=== PATIENT | female | born 1955 | race Caucasian/White ===

== ENCOUNTER → 2018-01-09 12:19 | Outpatient (CLI) | payer OTHER, SELFPAY | PROVIDERS: Family Provider Family Medicine Geriatric Medicine; PCP Family Medicine Geriatric Medicine; Visit Provider Family Medicine Geriatric Medicine | DX: R68.83 Chills (without fever) (principal) | CPT/HCPCS: 87633 ==

== ENCOUNTER → 2018-01-19 19:53 | Outpatient (CLI) | payer OTHER, SELFPAY ==
[2018-01-21 13:28] LABS: HPV Reflexed? NOT INDICATED
== END ==
PROVIDERS: Visit Provider Obstetrics & Gynecology
DX: Z12.4 Encounter for screening for malignant neoplasm of cervix (principal)
CPT/HCPCS: 88175; G0145

== ENCOUNTER → 2018-02-23 16:15 | Outpatient (CLI) | payer OTHER, SELFPAY ==
[2018-02-23 17:38] LABS: Absolute Lymphocyte Count 1.64 X10^3/ul (0.83-4.51); Absolute Neutrophil Count 3.7 X10^3/uL (2.0-7.7); Basophil# 0.02 X10^3/uL; Basophil% 0.3 % (0-1); Eosinophil# 0.14 X10^3/uL; Eosinophils% 2.3 % (0-5); Hematocrit 40.4 % (37-47); Hemoglobin 12.5 g/dl (12.0-15.0); Lymphocyte # 1.64 X10^3/ul (4.0); Lymphocyte % 27.4 % (19-41); Mean Corp Hgb Conc 30.9 g/gl (32-36); Mean Corpuscular Hgb 30.3 pg (27.0-32.0); Mean Corpuscular Volume 97.8 fL (81-99); Mean Platelet Vol. 10.2 fl (6.2-12.0); Monocyte# 0.51 X10^3/uL; Monocyte% 8.5 % (0-10); Neutrophil # 3.66 X10^3/uL (2.7-7.7); Neutrophil % 61.3 % (47-70); Platelet Count 196 K/mm3 (150-450); RBC Distribution Width CV 16.1 % (11.6-14.6); RBC Distribution Width SD 58.1 fl (35.1-43.9); Red Blood Count 4.13 M/mm3 (4.2-5.4)
[2018-02-23 17:45] LABS: POSITIVE COUNT NO; POSITIVE DIFFERENTIAL NO; POSITIVE MORPHOLOGY NO
[2018-02-23 17:52] LABS: ALB/GLOB Ratio 1.2 RATIO (0.9-2.4); AST(SGOT) 17 U/L (15-37); Alanine Aminotransfer ALT/SGPT 20 U/L (13-56); Albumin, Serum 3.6 g/dL (3.2-5.0); Alkaline Phosphatase 60 U/L (45-117); Anion Gap 5 (5-15); BUN 20 mg/dL (7-18); BUN/Creat Ratio 21.3 RATIO (10-20); Calcium,Total 8.2 mg/dL (8.5-10.1); Chloride 108 mmol/L (98-107); Creatinine, Serum 0.94 mg/dL (0.55-1.02); EST Glomerular Filtration Rate 64 mL/min (>60); Est Glom Filt Rate - Afr Amer 77 mL/min (>60); Globulin 3.1 g/dL (2.2-4.2); Glucose 72 mg/dL (74-106); Potassium 4.1 mmol/L (3.5-5.1); Protein, Total 6.7 g/dL (6.4-8.2); Sodium Level 142 mmol/L (136-145); Thyroid Stim Hormone (TSH) 1.33 uIU/mL (0.358-3.74)
[2018-02-25 14:08] LABS: Hep C Antibodies 0.1 s/co ratio (0.0-0.9)
== END ==
PROVIDERS: Family Provider Family Medicine Geriatric Medicine; PCP Family Medicine Geriatric Medicine; Visit Provider Family Medicine Geriatric Medicine
DX: R53.83 Other fatigue (principal)
CPT/HCPCS: 36415; 80053; 84443; 85025; 86803

== ENCOUNTER → 2018-06-02 11:59 | Outpatient (CLI) | payer OTHER, SELFPAY ==
--- NOTE | 2018-06-02 12:01 | BI_ITS ---
MAMMOGRAPHY - BILATERAL SCREENING REASON FOR EXAM: Female, 63 years old. Routine annual screening examination. PERTINENT HISTORY: Non-contributory. Bilateral breast implants. TECHNIQUE: Digital bilateral breast gina (3D mammographic acquisition) in the CC and MLO projections. 2-D mediolateral oblique (MLO) and craniocaudad (CC) views of both breasts were obtained. CAD: Full Field Digital Mammography with Computer Added Detection was performed. COMPARISON: Comparison is made with prior examination dated October 01, 2016 and June 29, 2010. FINDINGS: Breast Composition: The breasts are heterogeneously dense, which may obscure small masses. There are no dominant masses or suspicious calcifications. Stable appearance of the bilateral breast implants. No other significant abnormalities are identified. There has been no significant change since the prior study. BI/SCREENING MAMM (CAD), BILAT IMPRESSION: Stable bilateral screening mammogram. Yearly follow-up mammogram recommended. (A) ASSESSMENT CATEGORY: BIRADS Category 2: Benign. A letter regarding these results will be sent to the patient by the facility within 30 days. Approximately 10% of breast cancers are not detected by mammography. A normal mammogram should not delay biopsy of a clinically suspicious abnormality. [id number] Electronically Signed: Jalen Keane MD at 8:11 EST Tel [phone], Service support ,
== END ==
PROVIDERS: Family Provider Family Medicine Geriatric Medicine; PCP Family Medicine Geriatric Medicine; Referring Provider Obstetrics & Gynecology; Visit Provider Obstetrics & Gynecology
DX: Z12.31 Encounter for screening mammogram for malignant neoplasm of breast (principal)
CPT/HCPCS: 77063; 77067

== ENCOUNTER → 2018-08-24 15:21 | Outpatient (CLI) | payer OTHER, SELFPAY ==
[2018-08-24 16:30] LABS: Absolute Lymphocyte Count 1.83 X10^3/ul (0.83-4.51); Absolute Neutrophil Count 3.4 X10^3/uL (2.0-7.7); Basophil# 0.06 X10^3/uL; Basophil% 0.9 % (0-1); Eosinophil# 0.91 X10^3/uL; Eosinophils% 13.3 % (0-5); Hematocrit 40.9 % (37-47); Hemoglobin 12.6 g/dl (12.0-15.0); Lymphocyte # 1.83 X10^3/ul (4.0); Lymphocyte % 26.8 % (19-41); Mean Corp Hgb Conc 30.8 g/gl (32-36); Mean Corpuscular Hgb 30.3 pg (27.0-32.0); Mean Corpuscular Volume 98.3 fL (81-99); Mean Platelet Vol. 10.6 fl (6.2-12.0); Monocyte# 0.64 X10^3/uL; Monocyte% 9.4 % (0-10); Neutrophil # 3.38 X10^3/uL (2.7-7.7); Neutrophil % 49.6 % (47-70); POSITIVE COUNT NO; POSITIVE DIFFERENTIAL NO; POSITIVE MORPHOLOGY NO; Platelet Count 177 K/mm3 (150-450); RBC Distribution Width CV 12.6 % (11.6-14.6); RBC Distribution Width SD 45.2 fl (35.1-43.9); Red Blood Count 4.16 M/mm3 (4.2-5.4); White Blood Count 6.8 K/mm3 (4.4-11.0)
[2018-08-24 16:58] LABS: ALB/GLOB Ratio 1.3 RATIO (0.9-2.4); AST(SGOT) 25 U/L (15-37); Alanine Aminotransfer ALT/SGPT 33 U/L (13-56); Albumin, Serum 3.9 g/dL (3.2-5.0); Alkaline Phosphatase 86 U/L (45-117); Anion Gap 9 (5-15); BUN 17 mg/dL (7-18); BUN/Creat Ratio 22.5 RATIO (10-20); Calcium,Total 8.5 mg/dL (8.5-10.1); Chloride 104 mmol/L (98-107); Creatinine, Serum 0.76 mg/dL (0.55-1.02); EST Glomerular Filtration Rate 82 mL/min (>60); Est Glom Filt Rate - Afr Amer 99 mL/min (>60); Globulin 3.1 g/dL (2.2-4.2); Glucose 85 mg/dL (74-106); Potassium 4.1 mmol/L (3.5-5.1); Sodium Level 141 mmol/L (136-145); Thyroid Stim Hormone (TSH) 1.58 uIU/mL (0.358-3.74)
== END ==
PROVIDERS: Family Provider Family Medicine Geriatric Medicine; PCP Family Medicine Geriatric Medicine; Visit Provider Family Medicine Geriatric Medicine
DX: R53.83 Other fatigue (principal)
CPT/HCPCS: 36415; 80053; 84443; 85025

== ENCOUNTER → 2019-03-03 | Outpatient (CLI) | payer OTHER, SELFPAY ==
[2019-03-03 16:11] LABS: Absolute Lymphocyte Count 1.32 X10^3/uL (0.83-4.51); Absolute Neutrophil Count 3.4 X10^3/uL (2.0-7.7); Basophil# 0.03 X10^3/uL; Basophil% 0.6 % (0-1); Eosinophil# 0.08 X10^3/uL; Eosinophils% 1.5 % (0-5); Hematocrit 41.5 % (37-47); Hemoglobin 13.4 g/dL (12.0-15.0); Lymphocyte # 1.32 X10^3/ul (4.0); Lymphocyte % 24.7 % (19-41); Mean Corp Hgb Conc 32.3 g/dL (32-36); Mean Corpuscular Hgb 30.6 pg (27.0-32.0); Mean Corpuscular Volume 94.7 fL (81-99); Mean Platelet Vol. 10.9 fl (6.2-12.0); Monocyte# 0.53 X10^3/uL; Monocyte% 9.9 % (0-10); NRBC Flagged by Analyzer 0 % (0-5); Neutrophil # 3.38 X10^3/uL (2.7-7.7); Neutrophil % 63.1 % (47-70); Platelet Count 211 K/mm3 (150-450); RBC Distribution Width SD 45.5 fl (35.1-43.9); Red Blood Count 4.38 M/mm3 (4.2-5.4); White Blood Count 5.4 K/mm3 (4.4-11.0)
[2019-03-03 16:46] LABS: ALB/GLOB Ratio 1.3 RATIO (0.9-2.4); AST(SGOT) 20 U/L (15-37); Alanine Aminotransfer ALT/SGPT 25 U/L (13-56); Alkaline Phosphatase 75 U/L (45-117); Anion Gap 7 (5-15); BUN 15 mg/dL (7-18); BUN/Creat Ratio 20.6 RATIO (10-20); Calcium,Total 8.7 mg/dL (8.5-10.1); Chloride 105 mmol/L (98-107); Creatinine, Serum 0.73 mg/dL (0.55-1.02); EST Glomerular Filtration Rate 86 mL/min (>60); Est Glom Filt Rate - Afr Amer 104 mL/min (>60); Globulin 3.1 g/dL (2.2-4.2); Glucose 124 mg/dL (74-106); Potassium 4.3 mmol/L (3.5-5.1); Protein, Total 7.1 g/dL (6.4-8.2); Sodium Level 142 mmol/L (136-145); Thyroid Stim Hormone (TSH) 1.58 uIU/mL (0.358-3.74)
== END | disposition home or self-care (01) ==
LOC: POLAB3 08:53
PROVIDERS: Family Provider Family Medicine Geriatric Medicine; PCP Family Medicine Geriatric Medicine; Visit Provider Family Medicine Geriatric Medicine
DX: R53.83 Other fatigue (principal)
CPT/HCPCS: 36415; 80053; 84443; 85025

== ENCOUNTER → 2019-07-15 15:40 | Outpatient (CLI) | payer OTHER, SELFPAY | PROVIDERS: Family Provider Family Medicine Geriatric Medicine; PCP Family Medicine Geriatric Medicine; Referring Provider Otolaryngology Otolaryngology/Facial Plastic Surgery; Visit Provider Otolaryngology Otolaryngology/Facial Plastic Surgery | DX: J32.9 Chronic sinusitis, unspecified (principal) | CPT/HCPCS: 87070; 87077; 87186; 87205 ==

== ENCOUNTER → 2019-08-03 16:23 | Outpatient (CLI) | payer OTHER, SELFPAY | LOC: PSN 16:30 | PROVIDERS: PCP Family Medicine Geriatric Medicine; Referring Provider Family Medicine Geriatric Medicine; Visit Provider Family Medicine Geriatric Medicine | DX: R68.83 Chills (without fever) (principal) | CPT/HCPCS: 87633 ==

== ENCOUNTER → 2019-12-03 13:37 | Outpatient (CLI) | payer SELFPAY ==
[2019-12-07 20:44] LABS: HPV Reflexed? NOT INDICATED
== END ==
PROVIDERS: PCP Family Medicine Geriatric Medicine; Visit Provider Obstetrics & Gynecology
DX: Z12.4 Encounter for screening for malignant neoplasm of cervix (principal)
CPT/HCPCS: 88175; G0145

== ENCOUNTER → 2020-03-17 | Outpatient (CLI) | payer MEDICARE, SELFPAY ==
[2020-03-17 12:11] LABS: Absolute Lymphocyte Count 1.81 X10^3/uL (0.83-4.51); Absolute Neutrophil Count 3.4 X10^3/uL (2.0-7.7); Basophil# 0.05 X10^3/uL; Basophil% 0.8 % (0-1); Eosinophil# 0.19 X10^3/uL; Eosinophils% 3.1 % (0-5); Hematocrit 41.9 % (37-47); Hemoglobin 13.3 g/dL (12.0-15.0); Lymphocyte # 1.81 X10^3/ul (4.0); Lymphocyte % 29.5 % (19-41); Mean Corp Hgb Conc 31.7 g/dL (32-36); Mean Corpuscular Hgb 29.2 pg (27.0-32.0); Mean Corpuscular Volume 92.1 fL (81-99); Mean Platelet Vol. 10.8 fl (6.2-12.0); Monocyte% 11.4 % (0-10); NRBC Flagged by Analyzer 0 % (0-5); Neutrophil # 3.38 X10^3/uL (2.7-7.7); Platelet Count 198 K/mm3 (150-450); RBC Distribution Width CV 14.3 % (11.6-14.6); RBC Distribution Width SD 48.2 fl (35.1-43.9); Red Blood Count 4.55 M/mm3 (4.2-5.4); White Blood Count 6.1 K/mm3 (4.4-11.0)
[2020-03-17 12:52] LABS: Vitamin D,25 Hydroxy 40.3 ng/mL
[2020-03-17 13:16] LABS: ALB/GLOB Ratio 1.2 RATIO (0.9-2.4); AST(SGOT) 21 U/L (15-37); Alanine Aminotransfer ALT/SGPT 22 U/L (13-56); Alkaline Phosphatase 85 U/L (45-117); Anion Gap 4 (5-15); BUN 16 mg/dL (7-18); Chloride 104 mmol/L (98-107); Creatinine, Serum 0.84 mg/dL (0.55-1.02); EST Glomerular Filtration Rate 72 mL/min (>60); Est Glom Filt Rate - Afr Amer 88 mL/min (>60); Globulin 3.4 g/dL (2.2-4.2); Glucose 73 mg/dL (74-106); Potassium 4.5 mmol/L (3.5-5.1); Protein, Total 7.4 g/dL (6.4-8.2); Sodium Level 139 mmol/L (136-145); Thyroid Stim Hormone (TSH) 1.94 uIU/mL (0.358-3.74)
== END | disposition home or self-care (01) ==
LOC: POLAB3 10:24
PROVIDERS: PCP Family Medicine Geriatric Medicine; Visit Provider Family Medicine Geriatric Medicine
DX: E55.9 Vitamin D deficiency, unspecified (principal); R53.83 Other fatigue
CPT/HCPCS: 36415; 80053; 82306; 84443; 85025

== ENCOUNTER 2020-05-31 17:15 | Inpatient (IN) | payer MEDICARE, OTHER, SELFPAY ==
[2020-05-31 17:17] VITALS: BP 136/77; PULSE 97; RESP 20; TEMP 36.2; O2SAT 96; BMI 26.6
--- NOTE | 2020-05-31 18:12 | ED.DCSUM_ITS ---
History of Present Illness Chief Complaint: Substance Abuse Informant: Patient Narrative: Patient presents seeking help with substance abuse and withdrawal. She states that she has been taking oxycodones are not prescribed for her over the last 5 years. She will take up to 3 tabs daily. She states she is try to taper herself off in the past but had significant withdrawal symptoms. She spoke with 180 today who suggested she come in for medical detox and then follow-up with them. Patient states her last dose was approximately 3 hours ago. She denies any withdrawal symptoms at this time. - Past Medical History (1) Migraines Status: Chronic Past Medical History - Allergies and Home Meds Allergies/Adverse Reactions: Allergies No Known Allergies Allergy (Verified 05/31/20 17:17) Primary Care Physician: Kush Briscoe Chi, MD [Primary Care Provider] - Prior records reviewed: Yes Smoking Status: Unknown if ever smoked Review of Systems General: Denies: Chills, Fever Eyes: Denies: Visual changes - bilaterally ENT: Denies: Bilateral ear pain Cardiovascular: Denies: Chest pain Respiratory: Denies: Dyspnea, Cough Gastrointestinal: Denies: Abdominal pain, Vomiting, Diarrhea Musculoskeletal: Denies: Swelling, Extremity Pain Skin: Denies: Rash Hematologic: Denies: Easy bruising, Easy bleeding Allergy: Denies: Uticaria Physical Exam Vital Signs/Narrative: Vital Signs Temp Pulse Resp BP Pulse Ox 05/31/20 17:17 97.1 F L 97 20 H 136/77 H 96 Inital Vital Signs reviewed: Yes General: Well nourished, Well developed Head: Normocephalic ENT: Moist mucous membranes Neck: Supple Cardiovascular: Regular rate, Regular rhythm Respiratory: No distress, CTA bilaterally Abdomen: Soft, Nontender Extremities: Nontender Skin: Normal color Neurological: Alert, Oriented x3 Psychological: Normal affect Diagnostic/Tx/Re-eval Laboratory Results 05/31/20 05/31/20 05/31/20 18:27 18:27 18:27 WBC 6.8 RBC 4.50 Hgb 13.2 Hct 41.9 MCV 93.1 MCH 29.3 MCHC 31.5 L RDW Std Deviation 43.7 RDW Coeff of Moise 12.7 Plt Count 206 MPV 10.2 Immature Gran % (Auto) 0.300 Neut % (Auto) 59.8 Lymph % (Auto) 26.7 [place] % (Auto) 10.2 H Eos % (Auto) 2.7 Baso % (Auto) 0.3 Absolute Neuts (auto) 4.1 Absolute Lymphs (auto) 1.81 Nucleated RBC % 0 Sodium 142 Potassium 4.4 Chloride 107 Carbon Dioxide 30.0 Anion Gap 5 BUN 15 Creatinine 0.77 Estim Creat Clear Calc 70.83 Est GFR (MDRD) Af Amer 97 Est GFR (MDRD) Non-Af 80 BUN/Creatinine Ratio 19.5 Glucose 94 Calcium 9.0 Total Bilirubin 0.20 AST 23 ALT 30 Alkaline Phosphatase 96 Total Protein 7.3 Albumin 4.0 Globulin 3.3 Albumin/Globulin Ratio 1.2 Urine Opiates Screen Urine Methadone Screen Ur Barbiturates Screen Ur Phencyclidine Scrn Ur Amphetamines Screen U Methamphetamin-MDMA U Benzodiazepines Scrn Urine Cocaine Screen U Cannabinoids Screen Ur Drug Screen Comment Ethyl Alcohol < 3.0 05/31/20 18:27 WBC RBC Hgb Hct MCV MCH MCHC RDW Std Deviation RDW Coeff of Moise Plt Count MPV Immature Gran % (Auto) Neut % (Auto) Lymph % (Auto) [place] % (Auto) Eos % (Auto) Baso % (Auto) Absolute Neuts (auto) Absolute Lymphs (auto) Nucleated RBC % Sodium Potassium Chloride Carbon Dioxide Anion Gap BUN Creatinine Estim Creat Clear Calc Est GFR (MDRD) Af Amer Est GFR (MDRD) Non-Af BUN/Creatinine Ratio Glucose Calcium Total Bilirubin AST ALT Alkaline Phosphatase Total Protein Albumin Globulin Albumin/Globulin Ratio Urine Opiates Screen NEGATIVE Urine Methadone Screen NEGATIVE Ur Barbiturates Screen NEGATIVE Ur Phencyclidine Scrn NEGATIVE Ur Amphetamines Screen NEGATIVE U Methamphetamin-MDMA NEGATIVE U Benzodiazepines Scrn POSITIVE H Urine Cocaine Screen NEGATIVE U Cannabinoids Screen NEGATIVE Ur Drug Screen Comment Ethyl Alcohol - Medical Decision Making Patient was sent in by 180 for admission for detox. Blood work is reviewed. Patient be discussed with hospitalist for admission. ED Disposition - Plan for ED Patient: Disposition: Acute Care Hospital [facility] Diagnosis: Desire for detoxification Referrals: Kush Briscoe Chi, MD [Primary Care Provider] -
[2020-05-31 18:16] VITALS: RESP 16
[2020-05-31 18:40] LABS: Absolute Lymphocyte Count 1.81 X10^3/uL (0.83-4.51); Absolute Neutrophil Count 4.1 X10^3/uL (2.0-7.7); Basophil# 0.02 X10^3/uL; Basophil% 0.3 % (0-1); Eosinophil# 0.18 X10^3/uL; Eosinophils% 2.7 % (0-5); Hematocrit 41.9 % (37-47); Hemoglobin 13.2 g/dL (12.0-15.0); Lymphocyte # 1.81 X10^3/ul (4.0); Lymphocyte % 26.7 % (19-41); Mean Corp Hgb Conc 31.5 g/dL (32-36); Mean Corpuscular Hgb 29.3 pg (27.0-32.0); Mean Corpuscular Volume 93.1 fL (81-99); Mean Platelet Vol. 10.2 fl (6.2-12.0); Monocyte# 0.69 X10^3/uL; Monocyte% 10.2 % (0-10); NRBC Flagged by Analyzer 0 % (0-5); Neutrophil # 4.07 X10^3/uL (2.7-7.7); Neutrophil % 59.8 % (47-70); Platelet Count 206 K/mm3 (150-450); RBC Distribution Width CV 12.7 % (11.6-14.6); RBC Distribution Width SD 43.7 fl (35.1-43.9); White Blood Count 6.8 K/mm3 (4.4-11.0)
[2020-05-31 19:00] VITALS: RESP 18
[2020-05-31 19:08] LABS: ALB/GLOB Ratio 1.2 RATIO (0.9-2.4); AST(SGOT) 23 U/L (15-37); Alanine Aminotransfer ALT/SGPT 30 U/L (13-56); Alkaline Phosphatase 96 U/L (45-117); Anion Gap 5 (5-15); BUN 15 mg/dL (7-18); BUN/Creat Ratio 19.5 RATIO (10-20); Chloride 107 mmol/L (98-107); Creatinine, Serum 0.77 mg/dL (0.55-1.02); EST Glomerular Filtration Rate 80 mL/min (>60); Est Glom Filt Rate - Afr Amer 97 mL/min (>60); Estimated Creatinine Clearance 70.83 ml/min; Globulin 3.3 g/dL (2.2-4.2); Glucose 94 mg/dL (74-106); Potassium 4.4 mmol/L (3.5-5.1); Protein, Total 7.3 g/dL (6.4-8.2); Sodium Level 142 mmol/L (136-145)
[2020-05-31 19:12] LABS: Alcohol, Blood (Medical)-Serum < 3.0 mg/dL; Amphetamine Urine VISTA NEGATIVE (<1000 ng/mL); Barbiturate Urine VISTA NEGATIVE (< 200 ng/mL); Benzodiazepine Urine VISTA POSITIVE (< 200 ng/mL); Cocaine Urine VISTA NEGATIVE (< 300 ng/mL); Ecstacy Urine VISTA NEGATIVE (< 500 ng/mL); Methadone Urine VISTA NEGATIVE (< 300 ng/mL); PCP Urine VISTA NEGATIVE (< 25 ng/mL); THC Urine VISTA NEGATIVE (< 50 ng/mL); Vista UDS pH Range 5
--- NOTE | 2020-05-31 19:56 | PCM.HP.STD ---
Problem List (1) Opiate withdrawal Status: Acute (2) Desire for detoxification Status: Acute (3) Anxiety Status: Chronic (4) Polysubstance abuse Status: Chronic (5) Migraines Status: Chronic Qualifiers: Migraine type: unspecified Status migrainosus presence: without status migrainosus Intractability: not intractable Qualified Code(s): G43.909 - Migraine, unspecified, not intractable, without status migrainosus History of Present Illness Date of Admission: 05/31/20 Chief Complaint: Acute Opiate Withdrawal The patient is a 65 y/o F w/ PMHx: Chronic Migraines, Menopausal symptoms otherwise healthy, 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 Chronic 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 Abuse as coping mechanism with no chronic pain per her report who presents to the [facility] ED on 05/31/20 w/ noted opiate withdrawal onset starting late afternoon prior to presentation following last dose 5 mg oxycodone at ~ 2:30 pm on day of presentation, noting that she has been attempting to wean herself over the last several days (normally takes 3 tab 10 mg oxcodone daily, sometimes 4, occasionally flexeril and occasionally BZD but not routinely) with onset generalized body aches and pains, fatigue, restless leg, sweating, yawning, mild abdominal cramping but not severe. Patient interested in attaining clean status and notes she has never sought acute treatment prior. Work-up in the ED included T 97.1, heart rate 97, BP 136/77, respiratory rate 20, 96% on room air, CBC with WBC 6.8, hemoglobin 13.2, platelet 206 without marked shift, CMP unremarkable, urine drug screen negative for opiates however noting positive benzodiazepines, ethyl alcohol less than 3, did again confirm patient recent intake. Past Medical History Past Medical History (Chronic Problems): Chronic Problems Migraines (Chronic) Anxiety (Chronic) Polysubstance abuse (Chronic) Allergies No Known Allergies Allergy (Verified 05/31/20 17:17) Home Medications: Ambulatory Orders Medication Instructions Recorded Estradiol [Estradiol (Twice 0.5 tab VAGINALLY BID PRN 05/31/20 Weekly)] Sumatriptan 20 mg NS DAILY PRN PRN 05/31/20 Surgical History: - - Tonsillectomy, jaw surgery, bilateral breast implants, rhinoplasty, appendectomy. Psychiatric History: Anxiety OCCUPATIONAL THERAPY DEPARTMENT CHAIR History: No pertinent OCCUPATIONAL THERAPY DEPARTMENT CHAIR history Lives: Spouse/ Significant Other - Patient spouse has no substance abuse issues per her report. Smoking Status: Never smoker Tobacco Use: Non-smoker Alcohol: Occasional Drugs: - - Opiate abuse, does states she occasionally uses marijuana and occasional benzodiazepines but denies taking on a routine basis. - *Family History Maternal History Items: Dementia - Mother passed at age 93, mild dementia potentially but otherwise healthy with no heart disease, diabetes, cancer. Paternal History Items: Hypertension Review of Systems Constitutional: Reports: Anorexia, Malaise, Weakness, Fatigue. Denies: Chills, Fever, Weight Change HEENT: Reports: Head Aches. Denies: Sinus Congestion, Sinus Drainage Cardiovascular: Denies: Chest Pain, Palpitations Respiratory: Denies: Cough, Shortness of breath at rest, Sputum production Gastrointestinal: Reports: Abdominal Pain. Denies: Nausea, Vomiting Genitourinary: Denies: Dysuria Musculoskeletal: Reports: Joint Pain, Muscle pain. Denies: Joint Tenderness Skin: Denies: Rash, Wounds Neurological: Reports: - - Extreme restlessness.. Denies: Focal weakness, Numbness, Tingling Psychiatric: Reports: Anxiety. Denies: Depression, Homicidal Ideations, Suicidal Ideations Hematologic/ Lymphatic: Denies: Easy Bruising, Easy Bleeding VTE Information - Inpt Only VTE Present on Admission: No VTE Mechan Device Prophylaxis: None VTE Pharm Prophylaxis ordered?: No Reason prophylaxis not ordered:: Treatment Not Indicated Patient Problems: Active and Suspected Problems Desire for detoxification (Acute) Opiate withdrawal (Acute) Subjective: Patient seated upright in the ED bed, restless, extremely cheerful. Objective: Physical Examination: General: awake, alert, oriented x 3 and cooperative, seated upright in the ED bed, extremely restless, extremely talkative. Skin: normal color, turgor, no icterus, cyanosis. HEENT: AT/NC, EOMI, PERRLA, dry MM, no carotid bruits or JVD noted. Lungs: CTA bilaterally, moderate effort, moderate decrease BL bases, no rales, ronchi or wheezing. Heart: Mildly tachycardic with regular rhythm; no gallop, rub audible. Abdomen: soft, mild generalized discomfort with palpation, ND, hyperactive BS, no HSM. Extremities: no cyanosis, clubbing, or edema. Neurological: patient awake, alert, oriented as noted; cognitive function intact; pupils equally reactive to light and accomodation; cranial nerves II-XII grossly normal, moving all 4 extremities, no focal deficits, strength mildly global decrease secondary to acute presentation, extremely restless. Psychiatric: affect appears overly cheerful, extremely restless, no obvious acute evidence of depressive or anxiety feelings. - Physical Exam Vitals/I&O's: Vital Signs Temp Pulse Resp BP Pulse Ox 97.1 F L 97 18 136/77 H 96 05/31/20 17:17 05/31/20 17:17 05/31/20 19:00 05/31/20 17:17 05/31/20 17:17 Oxygen Delivery Method Room Air Weight: 170 lb 3.15 oz Body Mass Index (BMI) 26.6 Laboratory Results 05/31/20 18:27: WBC 6.8, RBC 4.50, Hgb 13.2, Hct 41.9, MCV 93.1, MCH 29.3, MCHC 31.5 L, RDW Std Deviation 43.7, RDW Coeff of Moise 12.7, Plt Count 206, MPV 10.2, Immature Gran % (Auto) 0.300, Neut % (Auto) 59.8, Lymph % (Auto) 26.7, Jack % (Auto) 10.2 H, Eos % (Auto) 2.7, Baso % (Auto) 0.3, Absolute Neuts (auto) 4.1, Absolute Lymphs (auto) 1.81, Nucleated RBC % 0 05/31/20 18:27: Sodium 142, Potassium 4.4, Chloride 107, Carbon Dioxide 30.0, Anion Gap 5, BUN 15, Creatinine 0.77, Estim Creat Clear Calc 70.83, Est GFR (MDRD) Af Amer 97, Est GFR (MDRD) Non-Af 80, BUN/Creatinine Ratio 19.5, Glucose 94, Calcium 9.0, Total Bilirubin 0.20, AST 23, ALT 30, Alkaline Phosphatase 96, Total Protein 7.3, Albumin 4.0, Globulin 3.3, Albumin/Globulin Ratio 1.2 05/31/20 18:27: Ethyl Alcohol < 3.0 05/31/20 18:27: Urine Opiates Screen NEGATIVE, Urine Methadone Screen NEGATIVE, Ur Barbiturates Screen NEGATIVE, Ur Phencyclidine Scrn NEGATIVE, Ur Amphetamines Screen NEGATIVE, U Methamphetamin-MDMA NEGATIVE, U Benzodiazepines Scrn POSITIVE H, Urine Cocaine Screen NEGATIVE, U Cannabinoids Screen NEGATIVE, Ur Drug Screen Comment Assessment/Plan All Active Problems Desire for detoxification (Acute) Opiate withdrawal (Acute) The patient is a 65 y/o F w/ PMHx: Chronic Migraines, Menopausal symptoms otherwise healthy, 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 1. Acute Opiate Withdrawal: Will admit to [facility], routine labs including CBC, CMP, urine for drug screen obtained in the ED, will initiate and continue on protocol with tapering course of Subutex, as needed tylenol, ibuprofen, bowel regimen, gabapentin, Bentyl, Vistaril, methocarbamol, clonidine, PRN nightly trazodone for insomnia, IV fluids, IV antiemetics. Once patient clinically improved and completion of taper nearing will plan consultation with case management for transition to next level of rehabilitation care. 2. Polysubstance Abuse, Chronic: Patient with several agents, denies daily abuse with benzodiazepines, notes occasionally takes but given urine drug screen some concern and will need to closely monitor and treat for potential benzodiazepine withdrawal if onset of concerning symptoms. Given patient high stress and anxiety discussed need for more appropriate coping mechanism with outpatient therapy and possibly medication treatment if appropriate. 3. Anxiety, untreated: Likely source for her abuse, discussed at length and will need close follow-up with counseling and consideration of medication. 4. Chronic migraines: We will hold patient nasal spray but have subcu sumatriptan regimen if onset severe migraine. 5. DVT prophylaxis: Low risk, encourage ambulation. Inpatient E&M: 66936 Init Hosp L3
--- NOTE | 2020-05-31 20:15 | CM.ED ---
Social Work Consult: Substance Abuse Informant: Dr. Cerrato This social economist met with patient in room. Introduced self and social economist role. Patient agreeable to speak with this social economist. Patient reports substance of choice a prescription pain medication. Patient reports main motivation as I don't have control of it anymore. Patient plans to follow up with [facility] after discharge from [facility] program. Patient verbally agreeing to [facility] contract and has no questions at this moment. Telephone call to Samuel Mcgrath. Updated on patient admission to [facility]. Johnnie PAN, THAIS
[2020-05-31 20:44] VITALS: BP 127/81; PULSE 75; RESP 16; TEMP 36.6; O2SAT 99
[2020-05-31 20:45] VITALS: BP 127/81; PULSE 75; RESP 16; TEMP 36.6; O2SAT 99
[2020-05-31 21:27] VITALS: BMI 26.7; BMI 26.8
[2020-05-31 22:00] VITALS: BP 124/77; PULSE 79; RESP 18; TEMP 36.7; O2SAT 98
[2020-05-31] MEDS: Lactated Ringers 1,000 ML 125 ML IV (22:17)
[2020-05-31] MEDS: Methocarbamol 750 MG Tablet 1500 MG PO (22:17)
[2020-06-01 00:20] VITALS: BP 136/89; PULSE 81; RESP 16; TEMP 36.8; O2SAT 100
[2020-06-01] MEDS: Buprenorphine HCl 2 MG TAB.SUBL SL ×4 (00:34→23:55)
[2020-06-01] MEDS: Ibuprofen 600 MG Tablet PO (03:40)
[2020-06-01 04:30] VITALS: BP 112/74; PULSE 95; RESP 18; TEMP 36.6; O2SAT 98
[2020-06-01] MEDS: Ondansetron 8 MG Tablet PO ×2 (04:44→20:52)
[2020-06-01] MEDS: hydrOXYzine PAM 25 MG Capsule 50 MG PO (05:52)
[2020-06-01] MEDS: Acetaminophen 500 MG Tablet PO ×2 (05:52→20:08)
[2020-06-01] MEDS: SUMAtriptan 6 MG/0.5 ML Vial SC (05:52)
[2020-06-01] MEDS: cloNIDine HCl 0.1 MG Tablet PO (05:52)
--- NOTE | 2020-06-01 07:29 | PN_ITS ---
Patient Problems: Active and Suspected Problems Desire for detoxification (Acute) Opiate withdrawal (Acute) Reason for Visit: Follow-up for opioid withdrawal Objective: Patient admitted for medical stabilization of opioid withdrawal. Patient takes oxycodone at home. Denies IV heroin, smoking or snorting opioid or crack cocaine. Patient takes oxycodone 5 mg about 3 times daily. Denies tremor, hallucinations or bad dreams. Patient had vomiting, gastric in nature. Physical exam General: Alert, Oriented x3, Cooperative HEENT: Atraumatic, PERRLA, EOMI, Normocephalic Oral: No Gingival or Mucosal Lesions/ Ulcerations Neck: Supple, No JVD, Negative Carotid Bruits Lungs: Air entry equal in bilateral lung bases. No crepitation/rhonchi Cardiovascular: Regular rate, Regular Rhythm, Normal S1, Normal S2, No murmurs Abdomen: Bowel Sounds Present, Soft, Non Tender, Non-Distended : No renal angle tenderness. No suprapubic tenderness. Extremities: No edema, Capillary Refill Less than 3 Seconds Skin: No rashes, No breakdown Musculoskeletal: No Tenderness to Palpation of Joints or Extremities Neurological: Cranial nerves II-XII grossly intact, Deep Tendon Reflexes 2+/4 and Symmetrical, Neuro grossly intact Psych/Mental Status: Normal Affect, Appropriate. Vitals/I&O's: Vital Signs Temp Pulse Resp BP Pulse Ox 97.9 F 95 18 112/74 98 06/01/20 04:30 06/01/20 04:30 06/01/20 04:30 06/01/20 04:30 06/01/20 04:30 Oxygen Delivery Method Room Air Weight: 170 lb 13.732 oz Body Mass Index (BMI) 26.7 Intake and Output for Last 24 Hours 05/30/20 05/31/20 06/01/20 23:59 23:59 23:59 Intake Total / Balance Laboratory Results 05/31/20 18:27: WBC 6.8, RBC 4.50, Hgb 13.2, Hct 41.9, MCV 93.1, MCH 29.3, MCHC 31.5 L, RDW Std Deviation 43.7, RDW Coeff of Moise 12.7, Plt Count 206, MPV 10.2, Immature Gran % (Auto) 0.300, Neut % (Auto) 59.8, Lymph % (Auto) 26.7, [place] % (Auto) 10.2 H, Eos % (Auto) 2.7, Baso % (Auto) 0.3, Absolute Neuts (auto) 4.1, A bsolute Lymphs (auto) 1.81, Nucleated RBC % 0 05/31/20 18:27: Sodium 142, Potassium 4.4, Chloride 107, Carbon Dioxide 30.0, Anion Gap 5, BUN 15, Creatinine 0.77, Estim Creat Clear Calc 70.83, Est GFR (MDRD) Af Amer 97, Est GFR (MDRD) Non-Af 80, BUN/Creatinine Ratio 19.5, Glucose 94, Calcium 9.0, Total Bilirubin 0.20, AST 23, ALT 30, Alkaline Phosphatase 96, Total Protein 7.3, Albumin 4.0, Globulin 3.3, Albumin/Globulin Ratio 1.2 05/31/20 18:27: Ethyl Alcohol < 3.0 05/31/20 18:27: Urine Opiates Screen NEGATIVE, Urine Methadone Screen NEGATIVE, Ur Barbiturates Screen NEGATIVE, Ur Phencyclidine Scrn NEGATIVE, Ur Amphetamines Screen NEGATIVE, U Methamphetamin-MDMA NEGATIVE, U Benzodiazepines Scrn POSITIVE H, Urine Cocaine Screen NEGATIVE, U Cannabinoids Screen NEGATIVE, Ur Drug Screen Comment Current Medications Acetaminophen (Acetaminophen 500 Mg Tablet) 500 mg PO Q4H PRN PRN PRN Reason: Pain 1-10 or Fever Last Admin: 06/01/20 05:52 Dose: 500 mg Documented by: Al Hydroxide/Mg Hydroxide (Mag Hydrox/Al Hydrox/Simeth 30 Ml Udc) 30 ml PO Q6H PRN PRN PRN Reason: dyspesia Albuterol Sulfate (Albuterol 2.5 Mg/3 Ml Vial.Neb.) 2.5 mg INHALATION Q2H PRN PRN PRN Reason: Dyspnea, wheezing Bisacodyl (Bisacodyl 10 Mg Suppository) 10 mg RECTAL DAILY PRN PRN PRN Reason: Constipation Buprenorphine HCl (Buprenorphine Hcl 2 Mg Tab.Subl) 4 mg SL Q8H FRANCO; Taper Stop: 06/04/20 00:29 Last Admin: 06/01/20 00:34 Dose: 4 mg Documented by: Clonidine (Clonidine Hcl 0.1 Mg Tablet) 0.1 mg PO Q8H PRN PRN PRN Reason: RESTLESSNESS Last Admin: 06/01/20 05:52 Dose: 0.1 mg Documented by: Dicyclomine HCl (Dicyclomine 10 Mg Capsule) 20 mg PO Q6H PRN PRN PRN Reason: Abdominal Discomfort Gabapentin (Gabapentin 300 Mg Capsule) 300 mg PO Q8H PRN PRN PRN Reason: moderate to severe anxiety Hydralazine HCl (Hydralazine 20 Mg/Ml Vial) 10 mg IV Q4H PRN PRN PRN Reason: SBP > 160 Hydroxyzine Pamoate (Hydroxyzine Helena 25 Mg Capsule) 50 mg PO Q6H PRN PRN PRN Reason: mild anxiety Last Admin: 06/01/20 05:52 Dose: 50 mg Documented by: Ibuprofen (Ibuprofen 600 Mg Tablet) 600 mg PO Q8H PRN PRN PRN Reason: Pain Score 1-10 Last Admin: 06/01/20 03:40 Dose: 600 mg Documented by: Loperamide HCl (Loperamide 2 Mg Capsule) 2 mg PO Q4H PRN PRN PRN Reason: LOOSE STOOLS Methocarbamol (Methocarbamol 750 Mg Tablet) 1,500 mg PO Q6H PRN PRN PRN Reason: MUSCLE SPASM Last Admin: 05/31/20 22:17 Dose: 1,500 mg Documented by: Ondansetron HCl (Ondansetron 8 Mg Tablet) 8 mg PO Q8H PRN PRN PRN Reason: NAUSEA Last Admin: 06/01/20 04:44 Dose: 8 mg Documented by: Senna (Senna Tablet) 2 tablet PO QHS PRN PRN PRN Reason: Constipation Sodium Chloride (0.9% Saline Lock 10 Ml Syringe) 10 - 40 ml IV UD PRN PRN Reason: SALINE FLUSH Sumatriptan Succinate (Sumatriptan 6 Mg/0.5 Ml Vial) 6 mg SC X1 PRN PRN Reason: MIGRAINE SYMPTOMS Last Admin: 06/01/20 05:52 Dose: 6 mg Documented by: Trazodone HCl (Trazodone 100 Mg Tablet) 100 mg PO QHS PRN PRN PRN Reason: INSOMNIA STROKE Vital Signs/Narrative: Vital Signs Temp Pulse Resp BP Pulse Ox 06/01/20 04:30 97.9 F 95 18 112/74 98 Medical Necessity - Tobacco Use Smoking Status: Never smoker Tobacco Use: Non-smoker Assessment/Plan All Active Problems Desire for detoxification (Acute) Opiate withdrawal (Acute) The patient is a 65 y/o F with history of chronic Migraines was admitted for opioid withdrawals syndrome. 1. Acute Opiate Withdrawal syndrome: Pressure and heart rate are controlled. Labs reviewed and CBC CMP within normal limit. U tox positive for benzodiazepine. Serum alcohol negative. Patient on Subutex course along with other supportive medications. 2. Polysubstance Abuse, Chronic: It has chronic use of benzodiazepines. Counseling done for quitting. costing manager/180 consult. 3. Anxiety, untreated: Counseling with the behavioral health. 4. Chronic migraines: As needed subcu sumatriptan regimen if onset severe migraine. 5. DVT prophylaxis: Low risk, encourage ambulation. Active Medications Acetaminophen (Acetaminophen 500 Mg Tablet) 500 mg PO Q4H PRN PRN PRN Reason: Pain 1-10 or Fever Last Admin: 06/01/20 05:52 Dose: 500 mg Documented by: Al Hydroxide/Mg Hydroxide (Mag Hydrox/Al Hydrox/Simeth 30 Ml Udc) 30 ml PO Q6H PRN PRN PRN Reason: dyspesia Albuterol Sulfate (Albuterol 2.5 Mg/3 Ml Vial.Neb.) 2.5 mg INHALATION Q2H PRN PRN PRN Reason: Dyspnea, wheezing Bisacodyl (Bisacodyl 10 Mg Suppository) 10 mg RECTAL DAILY PRN PRN PRN Reason: Constipation Buprenorphine HCl (Buprenorphine Hcl 2 Mg Tab.Subl) 4 mg SL Q8H FRANCO; Taper Stop: 06/04/20 00:29 Last Admin: 06/01/20 09:40 Dose: 4 mg Documented by: Clonidine (Clonidine Hcl 0.1 Mg Tablet) 0.1 mg PO Q8H PRN PRN PRN Reason: RESTLESSNESS Last Admin: 06/01/20 05:52 Dose: 0.1 mg Documented by: Dicyclomine HCl (Dicyclomine 10 Mg Capsule) 20 mg PO Q6H PRN PRN PRN Reason: Abdominal Discomfort Gabapentin (Gabapentin 300 Mg Capsule) 300 mg PO Q8H PRN PRN PRN Reason: moderate to severe anxiety Hydralazine HCl (Hydralazine 20 Mg/Ml Vial) 10 mg IV Q4H PRN PRN PRN Reason: SBP > 160 Hydroxyzine Pamoate (Hydroxyzine Helena 25 Mg Capsule) 50 mg PO Q6H PRN PRN PRN Reason: mild anxiety Last Admin: 06/01/20 05:52 Dose: 50 mg Documented by: Ibuprofen (Ibuprofen 600 Mg Tablet) 600 mg PO Q8H PRN PRN PRN Reason: Pain Score 1-10 Last Admin: 06/01/20 03:40 Dose: 600 mg Documented by: Loperamide HCl (Loperamide 2 Mg Capsule) 2 mg PO Q4H PRN PRN PRN Reason: LOOSE STOOLS Methocarbamol (Methocarbamol 750 Mg Tablet) 1,500 mg PO Q6H PRN PRN PRN Reason: MUSCLE SPASM Last Admin: 05/31/20 22:17 Dose: 1,500 mg Documented by: Ondansetron HCl (Ondansetron 8 Mg Tablet) 8 mg PO Q8H PRN PRN PRN Reason: NAUSEA Last Admin: 06/01/20 04:44 Dose: 8 mg Documented by: Senna (Senna Tablet) 2 tablet PO QHS PRN PRN PRN Reason: Constipation Sodium Chloride (0.9% Saline Lock 10 Ml Syringe) 10 - 40 ml IV UD PRN PRN Reason: SALINE FLUSH Sumatriptan Succinate (Sumatriptan 6 Mg/0.5 Ml Vial) 6 mg SC X1 PRN PRN Reason: MIGRAINE SYMPTOMS Last Admin: 06/01/20 05:52 Dose: 6 mg Documented by: Trazodone HCl (Trazodone 100 Mg Tablet) 100 mg PO QHS PRN PRN PRN Reason: INSOMNIA Inpatient E&M: 50474 [facility] Hosp L2
[2020-06-01 09:44] VITALS: BP 118/82; PULSE 84; RESP 16; TEMP 36.7; O2SAT 97
--- NOTE | 2020-06-01 09:55 | ADDICTION ---
This blurb writer met with patient to complete ASAM, MSE, DUDIT assessments and to plan for discharge. Patient was able to complete assessments, but did not complete d/c plan due to feeling nauseous and requesting this blurb writer to return tomorrow. This blurb writer plans to meet with patient tomorrow morning to complete d/c plan.
--- NOTE | 2020-06-01 10:19 | NURSING ---
discussed 2 pills nightshift charge nurse stated were locked in unit narc.drawer that had been sent up from the ER after being found in patient's pocket, with hospital housekeeper then pharmacist and asked about proper handling and disposing of said pills. This nurse looked them up on clinical pharmacology site and identified them as being clonazepam 0.5mg and oxycodone 10mg. Also discussed with business unit manager as directed by pharmacists, as per report pt does not have an active prescription for these medications. Left in narc restaurant inspector biobag at this time, awaiting advisement on proper handling/disposal.
--- NOTE | 2020-06-01 11:30 | NURSING ---
as instructed by Reproduction Order Processor Yulissa Krause and Jerry Rubio 2 pills from the narc drawer identified as Clonazepam 0.5mg and Oxycodone 10mg wasted in Rx destroyer witnessed by primary RN Destini Wheeler.
[2020-06-01 14:18] VITALS: BP 123/78; PULSE 88; RESP 18; TEMP 36.9; O2SAT 98
[2020-06-01 19:58] VITALS: BP 124/68; PULSE 60; RESP 18; TEMP 36.8; O2SAT 100
[2020-06-02 02:40] VITALS: BP 128/77; PULSE 82; RESP 18; TEMP 36.6; O2SAT 97
[2020-06-02] MEDS: Acetaminophen 500 MG Tablet PO (02:44)
[2020-06-02 07:43] VITALS: BP 109/69; PULSE 76; RESP 18; TEMP 36.5; O2SAT 99
[2020-06-02] MEDS: Buprenorphine HCl 2 MG TAB.SUBL SL (07:50)
[2020-06-02] MEDS: Ibuprofen 600 MG Tablet PO (07:50)
--- NOTE | 2020-06-02 09:48 | ADDICTION ---
This bond underwriter met with patient in her room to complete discharge plan. Patient was alert, oriented and goal focused throughout meeting and was amiable to this bond underwriter assisting with appointment scheduling and coordination with [facility] for ongoing treatment. Patient is scheduled for assessment on 06/23/2020 and is amiable to this appointment time and date. She reported that her or daughter will be providing transportation upon d/c from [facility].
--- NOTE | 2020-06-02 11:31 | DCINST_ITS ---
- Discharge Diagnoses Current Active Problems: Current Active and Chronic Problems Migraines (Chronic) Desire for detoxification (Acute) Opiate withdrawal (Acute) Anxiety (Chronic) Polysubstance abuse (Chronic) You will use the following diet at home:: Regular Your food should be the consistency of: Regular Discharge Activity: May Not Drive Call your doctor if you observe: Fever of 101 or Higher, Coldness, Increased Pain, Numbness or Tingling, Inability to urinate, Shortness of breath, Dizziness, Fainting spells, Swelling in the ankles, Chest pain, Prolonged hiccoughing, Increased palpitations (irregular heartbeat), Calf discomfort, Unc ontrolled pain Allergies/Adverse Reactions: Allergies No Known Allergies Allergy (Verified 05/31/20 17:17) Medications to take at Discharge Estradiol [Estradiol (Twice Weekly)] 0.5 tab VAGINALLY BID PRN 05/31/20 Sumatriptan 20 mg NS DAILY PRN PRN 05/31/20 Primary Care Physician: Kush Briscoe Chi, MD [Primary Care Provider] - Please follow up with your Primary Care Physician in: in 2 week Test Results: Test results from this visit will be discussed in further detail at your follow- up appointment, if applicable.
--- NOTE | 2020-06-02 12:32 | DS.PCM_ITS ---
Discharge Date and Diagnosis - Problem List Patient Problems: Active and Suspected Problems Desire for detoxification (Acute) Opiate withdrawal (Acute) Date of Admission: 05/31/20 Date of Discharge: 06/02/20 - Primary Discharge Diagnosis Acute Problems: Active Problems Desire for detoxification (Acute) Opiate withdrawal (Acute) - Secondary Discharge Diagnosis Chronic Problems: Chronic Problems Migraines (Chronic) Anxiety (Chronic) Polysubstance abuse (Chronic) Hospital Course and Treatment Summary of Care Provided: The patient is a 65 y/o F with history of chronic Migraines was admitted for opioid withdrawals syndrome. 1. Acute Opiate Withdrawal syndrome: Pressure and heart rate are controlled. Labs reviewed and CBC CMP within normal limit. U tox positive for benzodiazepine. Serum alcohol negative. Patient on Subutex course along with other supportive medications. Patient takes oxycodone initially for pain but later on she started taking for anxiety. Nausea and vomiting resolved. Headache resolved. Patient wants to go home and is discharged home. 2. Polysubstance Abuse, Chronic: It has chronic use of benzodiazepines. Counseling done for quitting. Follow-up 180 as an outpatient for counseling. 3. Anxiety: Counseling with the behavioral health. 4. Chronic migraines: As needed subcu sumatriptan regimen if onset severe migraine. 5. DVT prophylaxis: Low risk, encourage ambulatio[] Discharge medication reconciliation done. Discharge follow-up instructions completed. Discharge process discussed with the patient and all questions were answered to patient's satisfaction. Patient Problems: Active and Suspected Problems Desire for detoxification (Acute) Opiate withdrawal (Acute) Objective: Seen and examined. Patient had mild panic attack in the morning but later on she felt good and wants to go home. She also felt mild vomiting after eating Jell-O which has resolved. Complained of mild headache but not severe to need triptan. Physical exam General: Alert, Oriented x3, Cooperative HEENT: Atraumatic, PERRLA, EOMI, Normocephalic Oral: No Gingival or Mucosal Lesions/ Ulcerations Neck: Supple, No JVD, Negative Carotid Bruits Lungs: Air entry diminished in bilateral lung bases. No crepitation/rhonchi Cardiovascular: Regular rate, Regular Rhythm, Normal S1, Normal S2, No murmurs Abdomen: Bowel Sounds Present, Soft, Non Tender, Non-Distended : No renal angle tenderness. No suprapubic tenderness. Extremities: No edema, Capillary Refill Less than 3 Seconds Skin: No rashes, No breakdown Musculoskeletal: No Tenderness to Palpation of Joints or Extremities Neurological: Cranial nerves II-XII grossly intact, Deep Tendon Reflexes 2+/4 and Symmetrical, Neuro grossly intact Psych/Mental Status: Normal Affect, Appropriate. - Physical Exam Vitals/I&O's: Vital Signs Temp Pulse Resp BP Pulse Ox 97.7 F L 76 18 109/69 99 06/02/20 07:43 06/02/20 07:43 06/02/20 07:43 06/02/20 07:43 06/02/20 07:43 Oxygen Delivery Method Room Air Weight: 170 lb 13.732 oz Body Mass Index (BMI) 26.7 Intake and Output for Last 24 Hours 05/31/20 06/01/20 06/02/20 23:59 23:59 23:59 Intake Total 2870.83 / 2870.83 900 / 900 Output Total 100 / 100 Balance 2770.83 / 2770.83 900 / 900 Current Medications Acetaminophen (Acetaminophen 500 Mg Tablet) 500 mg PO Q4H PRN PRN PRN Reason: Pain 1-10 or Fever Last Admin: 06/02/20 02:44 Dose: 500 mg Documented by: Al Hydroxide/Mg Hydroxide (Mag Hydrox/Al Hydrox/Simeth 30 Ml Udc) 30 ml PO Q6H PRN PRN PRN Reason: dyspesia Albuterol Sulfate (Albuterol 2.5 Mg/3 Ml Vial.Neb.) 2.5 mg INHALATION Q2H PRN PRN PRN Reason: Dyspnea, wheezing Bisacodyl (Bisacodyl 10 Mg Suppository) 10 mg RECTAL DAILY PRN PRN PRN Reason: Constipation Buprenorphine HCl (Buprenorphine Hcl 2 Mg Tab.Subl) 2 mg SL Q8H FRANCO; Taper Stop: 06/04/20 00:29 Last Admin: 06/02/20 07:50 Dose: 2 mg Documented by: Clonidine (Clonidine Hcl 0.1 Mg Tablet) 0.1 mg PO Q8H PRN PRN PRN Reason: RESTLESSNESS Last Admin: 06/01/20 05:52 Dose: 0.1 mg Documented by: Dicyclomine HCl (Dicyclomine 10 Mg Capsule) 20 mg PO Q6H PRN PRN PRN Reason: Abdominal Discomfort Gabapentin (Gabapentin 300 Mg Capsule) 300 mg PO Q8H PRN PRN PRN Reason: moderate to severe anxiety Hydralazine HCl (Hydralazine 20 Mg/Ml Vial) 10 mg IV Q4H PRN PRN PRN Reason: SBP > 160 Hydroxyzine Pamoate (Hydroxyzine [place] 25 Mg Capsule) 50 mg PO Q6H PRN PRN PRN Reason: mild anxiety Last Admin: 06/01/20 05:52 Dose: 50 mg Documented by: Ibuprofen (Ibuprofen 600 Mg Tablet) 600 mg PO Q8H PRN PRN PRN Reason: Pain Score 1-10 Last Admin: 06/02/20 07:50 Dose: 600 mg Documented by: Loperamide HCl (Loperamide 2 Mg Capsule) 2 mg PO Q4H PRN PRN PRN Reason: LOOSE STOOLS Methocarbamol (Methocarbamol 750 Mg Tablet) 1,500 mg PO Q6H PRN PRN PRN Reason: MUSCLE SPASM Last Admin: 05/31/20 22:17 Dose: 1,500 mg Documented by: Ondansetron HCl (Ondansetron 8 Mg Tablet) 8 mg PO Q8H PRN PRN PRN Reason: NAUSEA Last Admin: 06/01/20 20:52 Dose: 8 mg Documented by: Senna (Senna Tablet) 2 tablet PO QHS PRN PRN PRN Reason: Constipation Sodium Chloride (0.9% Saline Lock 10 Ml Syringe) 10 - 40 ml IV UD PRN PRN Reason: SALINE FLUSH Sumatriptan Succinate (Sumatriptan 6 Mg/0.5 Ml Vial) 6 mg SC X1 PRN PRN Reason: MIGRAINE SYMPTOMS Last Admin: 06/01/20 05:52 Dose: 6 mg Documented by: Trazodone HCl (Trazodone 100 Mg Tablet) 100 mg PO QHS PRN PRN PRN Reason: INSOMNIA Discharge Activity: May Not Drive Call your doctor if you observe: Fever of 101 or Higher, Coldness, Increased Pain, Numbness or Tingling, Inability to urinate, Shortness of breath, Dizziness, Fainting spells, Swelling in the ankles, Chest pain, Prolonged hiccoughing, Increased palpitations (irregular heartbeat), Calf discomfort, Uncontrolled pain Home Medications: Medications to take at Discharge Estradiol [Estradiol (Twice Weekly)] 0.5 tab VAGINALLY BID PRN 05/31/20 Sumatriptan 20 mg NS DAILY PRN PRN 05/31/20 Primary Care Physician: Kush Briscoe Chi, MD [Primary Care Provider] - Please follow up with your Primary Care Physician in: in 2 week Medical Necessity - Tobacco Use Smoking Status: Never smoker Tobacco Use: Non-smoker Meaningful Use Info Meaningful Use Diagnoses (Choose all that apply): None applicable Inpatient E&M: 40476 [facility]
== END 2020-06-02 13:07 | disposition home or self-care (01) | DRG 897 ==
LOC: ED 19:48 → MS3 20:41
PROVIDERS: Admitting Provider Family Medicine; Emergency Provider Emergency Medicine; PCP Family Medicine Geriatric Medicine; Referring Provider Family Medicine; Visit Provider Internal Medicine
DX: F11.23 Opioid dependence with withdrawal (principal); F12.90 Cannabis use, unspecified, uncomplicated; F41.9 Anxiety disorder, unspecified; G43.909 Migraine, unspecified, not intractable, without status migrainosus
CPT/HCPCS: 80053; 80307; 80320; 85025; 99251; 99284; J7120; A4216; G0463; G0480; J3030

== ENCOUNTER → 2021-03-20 09:05 | Outpatient (CLI) | payer MEDICARE, OTHER, SELFPAY ==
[2021-03-20 10:42] LABS: Absolute Lymphocyte Count 1.77 X10^3/uL (0.83-4.51); Absolute Neutrophil Count 4.9 X10^3/uL (2.0-7.7); Basophil# 0.01 X10^3/uL; Basophil% 0.1 % (0-1); Hematocrit 39.2 % (37-47); Hemoglobin 12.5 g/dL (12.0-15.0); Lymphocyte # 1.77 X10^3/ul (0.83-4.51); Lymphocyte % 23.4 % (19-41); Mean Corp Hgb Conc 31.9 g/dL (32-36); Monocyte# 0.84 X10^3/uL; Monocyte% 11.1 % (0-10); NRBC Flagged by Analyzer 0 % (0-5); Neutrophil # 4.88 X10^3/uL (2.7-7.7); Neutrophil % 64.7 % (47-70); Platelet Count 231 K/mm3 (150-450); RBC Distribution Width CV 12.9 % (11.6-14.6); RBC Distribution Width SD 44.9 fl (35.1-43.9); Red Blood Count 4.17 M/mm3 (4.2-5.4); White Blood Count 7.6 K/mm3 (4.4-11.0)
[2021-03-20 11:20] LABS: ALB/GLOB Ratio 0.9 RATIO (0.9-2.4); AST(SGOT) 16 U/L (15-37); Alanine Aminotransfer ALT/SGPT 23 U/L (13-56); Albumin, Serum 3.6 g/dL (3.2-5.0); Alkaline Phosphatase 80 U/L (45-117); Anion Gap 6 (5-15); BUN 21 mg/dL (7-18); BUN/Creat Ratio 25.1 RATIO (10-20); Calcium,Total 8.6 mg/dL (8.5-10.1); Chloride 105 mmol/L (98-107); Creatinine, Serum 0.84 mg/dL (0.55-1.02); EST Glomerular Filtration Rate 72 mL/min (>60); Est Glom Filt Rate - Afr Amer 88 mL/min (>60); Globulin 3.9 g/dL (2.2-4.2); Glucose 80 mg/dL (74-106); Potassium 3.8 mmol/L (3.5-5.1); Protein, Total 7.5 g/dL (6.4-8.2); Sodium Level 138 mmol/L (136-145); Thyroid Stim Hormone (TSH) 0.66 uIU/mL (0.358-3.74)
== END ==
PROVIDERS: PCP Family Medicine Geriatric Medicine; Referring Provider Family Medicine Geriatric Medicine; Visit Provider Family Medicine Geriatric Medicine
DX: E55.9 Vitamin D deficiency, unspecified (principal); R53.83 Other fatigue; R06.89 Other abnormalities of breathing
CPT/HCPCS: 36415; 80053; 82306; 84443; 85025; 87635; 87804; 87807; C9803; U0005; U0003

== ENCOUNTER → 2021-04-02 15:28 | Outpatient (CLI) | payer MEDICARE, OTHER, SELFPAY ==
--- NOTE | 2021-04-02 15:31 | BI_ITS ---
MAMMOGRAPHY - BILATERAL SCREENING REASON FOR EXAM: Female, 66 years old. Routine annual screening examination. PERTINENT HISTORY: Non-contributory. Bilateral breast implants. TECHNIQUE: Digital bilateral breast shira (3D mammographic acquisition) in the CC and MLO projections. 2-D mediolateral oblique (MLO) and craniocaudad (CC) views of both breasts were obtained. CAD: Full Field Digital Mammography with Computer Added Detection was performed. COMPARISON: Comparison is made with prior study dated 06/02/2018 and 10/01/2016. FINDINGS: Breast Composition: The breasts are heterogeneously dense, which may obscure small masses. There are no dominant masses or suspicious calcifications. Stable appearance of the bilateral breast implants. No other significant abnormalities are identified. There has been no significant change since the prior study. BI/SCRN MAMM (CAD)W/SHIRA BILAT IMPRESSION: Stable bilateral screening mammogram. Yearly follow-up mammogram recommended. (A) ASSESSMENT CATEGORY: BIRADS Category 2: Benign. A letter regarding these results will be sent to the patient by the facility within 30 days. Approximately 10% of breast cancers are not detected by mammography. A normal mammogram should not delay biopsy of a clinically suspicious abnormality. [id number] Electronically Signed: Jalen Keane MD at 8:08 EDT , Service support ,
== END ==
PROVIDERS: PCP Family Medicine Geriatric Medicine; Referring Provider Family Medicine Geriatric Medicine; Visit Provider Family Medicine Geriatric Medicine
DX: Z12.31 Encounter for screening mammogram for malignant neoplasm of breast (principal)
CPT/HCPCS: 77063; 77067

== ENCOUNTER 2022-02-09 17:34 | Emergency (ER) | payer MEDICARE, OTHER, SELFPAY ==
[2022-02-09 17:35] VITALS: BP 96/60; PULSE 73; RESP 17; TEMP 35.8; O2SAT 99; BMI 20.7
--- NOTE | 2022-02-09 17:45 | EKG12_ITS ---
Test Reason : ABDOMINAL PAIN Blood Pressure : / mmHG Vent. Rate : 079 BPM Atrial Rate : 079 BPM P-R Int : 180 ms QRS Dur : 090 ms QT Int : 442 ms P-R-T Axes : 076 -58 062 degrees QTc Int : 506 ms Normal sinus rhythm Low voltage QRS Left anterior fascicular block Abnormal ECG Confirmed by PHYLLIS ALMANZA, DAVID ([id number]), sports editor RANDI DON ([id number]) on 02/12/2022 1:00:52 PM Referred By: NAY Confirmed By:DAVID FERGUSON MD
--- NOTE | 2022-02-09 17:46 | ED.VIS.GI ---
HPI HPI - GI History of Present Illness Chief Complaint: Abd Pain Detail of Chief Complaint: Nausea and vomiting. Informant: patient and spouse/S.O. Abdominal Pain/Flank Pain Onset: Today Timing: Continuous Location: See Diagram and - (Suprapubic cramping.) Current Severity: Mild Maximum Severity: Mild Worsened by: Nothing Relieved by: Nothing Nausea/Vomiting/Emesis GI Symptom: Positive for Nausea and Vomiting Onset: Today Severity: Mild Diarrhea/Melena/Hematochezia GI Symptom: Negative for Diarrhea, Melena or Hematochezia Associated Symptoms Associated Symptoms: Negative for Dysuria, Frequency, Hematuria or Urgency Narrative Narrative: Six 7-year-old female history of migraine headaches. Her and her recently travel to [place] she said she often gets constipated when she travels. Today she was having lower abdominal cramping started about 4 hours ago. Then start having nausea vomiting. No hematemesis no melena. She has had a prior appendectomy. She denies any fever or chills. No dysuria. No melena. not having any symptoms. Prior similar symptoms: Yes Recent Illness/Hospitalization: No PFSH PFSH Home Medications estradiol 0.025 mg/24 hr semiweekly transdermal patch 0.5 tab VAGINALLY BID PRN vaginal dryness 05/31/20 [History Last Taken 05/30/20] sumatriptan 5 mg/actuation nasal spray 20 mg NS DAILY PRN PRN migraines 05/31/20 [History Last Taken Unknown] bupropion HCl 150 mg tablet,12 hr sustained-release 150 mg PO BID 02/09/22 [History Last Taken Unknown] ondansetron 4 mg disintegrating tablet 4 mg PO Q6H PRN nausea and vomiting #7 tabs 02/09/22 [Rx Last Taken Unknown] valacyclovir 1 gram tablet 1 tab PO DAILY 02/09/22 [History Last Taken Unknown] Allergy/AdvReac Type Severity Reaction Status Date / Time No Known Allergies Allergy Verified 02/09/22 17:36 Social History Smoking Status: Never smoker ROS ROS ED ROS Narrative Lower abdominal cramping. Review of Systems ROS Unobtainable: Denies due to encephalopathy Constitutional Constitutional ED: Denies difficulty sleeping Eyes Eyes: Denies blurry vision ENT ENT ED: Denies dental pain Cardiovascular Cardiovascular: Reports abdominal pain Respiratory/Chest Respiratory/Chest: Denies dyspnea Gastrointestinal Gastrointestinal: Reports abdominal pain, constipation, cramping and vomiting; Denies none Musculoskeletal Musculoskeletal: Denies deformity Integumentary Denies change in hair or laceration Neurologic Neurologic: Denies focal weakness Endocrine Endocrinology: Denies cold intolerance Allergic/Immunologic Allergic/Immunologic ED: Denies lip swelling or mouth swelling EXAM Physical Exam Narrative Exam Narrative: 6 cm female initial blood pressure is running low at 96/60 but she states she often runs around 100. Otherwise does not septic or toxic. No distress. H EENT exam mildly dry mucous members. Neck nontender. Lungs are clear. Heart regular rhythm rate about 70 no murmur. Abdomen soft, nontender, nondistended normal bowel sounds no peritoneal signs. No hernia or mass. No obstruction. No pulsatile mass. The abdomen is completely nontender. There is no reproducible pain. Moving all 4 extremities. Skin unremarkable. Neurologically she is awake and alert. Const Vital Signs: 02/09/22 17:35 Temperature 96.4 F L Temperature Source Temporal Pulse Rate 73 Respiratory Rate 17 Blood Pressure 96/60 Blood Pressure Mean 72 Pulse Ox 99 Oxygen Delivery Method Room Air Positive well nourished, well developed, alert, oriented x3, no apparent distress, average body habitus, no limitations and healthy appearing; Negative for obese, cachectic, contractures or unkempt General Appearance ED: active, cooperative, comfortable and well developed; Negative for unkempt, cachectic or contractures Nutritional Appearance: Negative for cachectic or obese HEENT Reports normocephalic, head/scalp atraumatic and dry mucous membranes; Denies moist mucous membranes normocephalic External Ear: external ears normal Mouth ED: Yes dry mucous membranes Mouth: dry mucous membranes Eyes PERRL, EOMs intact bilaterally, conjunctivae normal and no scleral icterus General Eye ED: Yes normal appearance of both eyes Neck full ROM, no lymphadenopathy, supple, no meningeal signs and no JVD General: normal visual inspection Lymph Lymphatic: no lymphadenopathy noted and no lymphedema noted Chest Wall inspection of chest normal and palpation of chest normal Resp normal respiratory effort, normal air movement, no retractions, no use of accessory muscles and clear to auscultation bilaterally Cardio regular rate, regular rhythm, S1 normal heart sound, S2 normal heart sound, no murmurs, no rub, no gallops, no clicks and no JVD Jugular Venous Distention: Negative for JVD Rate: regular rate Rhythm: regular rhythm Heart Sounds: S1 normal and S2 normal GI normal to inspection, nondistended, normoactive bowel sounds, soft to palpation, non-tender, non-distended, no masses and no bruits Auscultation: normoactive bowel sounds Palpation: soft; Negative for firm, tender, guarding or rigid Back/Spine no CVA tenderness, normal ROM, normal to inspection, thoracic and lumbar spine normal to inspection and no thoracic nor lumbar tenderness General Back: Negative for CVA tenderness Extremity normal to inspection, full ROM, no joint enlargement, no calf tenderness and no pedal edema Neuro oriented x3, CN's II-XII intact bilaterally, moves all extremities and no focal motor deficits Sensorium / Orientation: awake, alert, oriented to person, oriented to place and oriented to time; Negative for orientation impaired, confused, lethargic, somnolent, obtunded or stuporous Meningeal Signs: no meningeal signs Psych mental status grossly normal, thought process normal, cooperative, affect normal, speech normal and activity/motor behavior normal Appearance: Negative for unkempt Skin no rashes or lesions noted, no wounds, skin turgor normal, no jaundice, no petechiae and no mottling MDM MDM MDM Narrative Medical decision making narrative: 67-year-old female with abdominal cramping with nausea and vomiting. Is a benign exam. Typically her blood pressure runs around 100. She has had nausea vomiting. She will be given IV fluids with Zofran. Screening labs will be obtained. Currently her abdomen is completely nontender. At this time she does not need any imaging. Repeat exam patient is having recurrent pain. Exam is benign. I went over all the labs with her and her family. CAT scan being ordered. She will be treated with IV morphine and a second dose of Zofran for the nausea. Repeat exam at 11:10PM CAT scan result return. Discussed all test results with patient and family. Outpatient follow-up. Discharged on Zofran. Abdomen is benign. Lab Data Attestation: I reviewed the patient's lab results. Lab results narrative: CBC normal white count of 7. H&H 14 and 43. Platelets 158. Urinalysis shows no red cells, no white cells. Rare bacteria and no nitrites. Basically negative. Electrolytes unremarkable normal gap. Normal BUN and creatinine. Liver enzymes normal. Glucose 121. Normal amylase and lipase. CAT scan showing nonspecific bowel gas pattern, increased stool consistent with constipation and colitis. Labs: Laboratory Results - last 24 hr 02/09/22 02/09/22 02/09/22 17:48 18:05 18:05 WBC 7.3 RBC 4.36 Hgb 14.2 Hct 43.4 MCV 99.5 H MCH 32.6 H MCHC 32.7 RDW Std Deviation 48.6 H RDW Coeff of Moise 13.2 Plt Count 158 MPV 9.8 Immature Gran % (Auto) 0.300 Neut % (Auto) 92.4 H Lymph % (Auto) 5.2 L Leslie % (Auto) 1.8 Eos % (Auto) 0.0 Baso % (Auto) 0.3 Absolute Neuts (auto) 6.8 Absolute Lymphs (auto) 0.38 L Nucleated RBC % 0 Differential Comment SEE COMMENT Platelet Estimate ADEQUATE RBC Morphology N CHROM Anisocytosis RARE Macrocytosis RARE Sodium 139 Potassium 3.6 Chloride 106 Carbon Dioxide 26.0 Anion Gap 7 BUN 17 Creatinine 1.02 Estim Creat Clear Calc 50.59 Est GFR (MDRD) Af Amer 70 Est GFR (MDRD) Non-Af 57 L BUN/Creatinine Ratio 16.7 Glucose 121 H Calcium 8.8 Total Bilirubin 0.70 AST 36 ALT 30 Alkaline Phosphatase 82 Total Protein 7.2 Albumin 3.8 Globulin 3.4 Albumin/Globulin Ratio 1.1 Amylase 43 Lipase 67 L Urine Color Cele Urine Clarity Clear Urine pH 5.0 Ur Specific [place] 1.020 Urine Protein 15 H Urine Glucose (UA) Normal Urine Ketones 5 H Urine Occult Blood 10 H Urine Nitrite Negative Urine Bilirubin 3 H Urine Urobilinogen 8 H Ur Leukocyte Esterase 100 H Urine RBC 0 SEEN Urine WBC 0 SEEN Ur Squamous Epith Cells 0-5 SEEN Urine Bacteria RARE Urine Mucus 0 SEEN Radiography Diagnostic Testing: Clinical Impression(s) from Imaging Studies Abdomen/Pelvis CT 02/09/22 19:47 IMPRESSION: Descending colon and distal ileal inflammatory changes with small amount of surrounding fluid fluid and some free fluid in the pelvis suspicious for inflammatory bowel. Infectious colitis, enteritis could have a similar appearance. Mildly distended gallbladder with mild intra and extrahepatic biliary ductal dilation. Correlation with ultrasound is recommended. No visible biliary stone or obstructing mass visible. Correlate for structural biliary pattern. Right hepatic lobe hemangioma. Small sliding hiatal hernia. Electronically Signed: Med Galeas DO at 23:03 EDT , Rhythm Strip Rhythm Strip: Sinus Rhythm Rate: 79 Ectopy: None EKG Initial EKG: Attestation: I personally reviewed and interpreted this EKG as follows: Interpretation: Sinus Rhythm and No Acute Injury Pattern Comments: Normal sinus rhythm rate of 79 no acute signs of TX or ischemia. Low voltage. Discharge Plan Triage Chief Complaint: Abd Pain ED Provider: Leighton Brooks Dx/Rx/DC Orders Clinical Impression: Abdominal pain, Constipation, Colitis Instructions: Abdominal Pain Prescriptions: New ondansetron 4 mg tablet,disintegrating 4 mg PO Q6H PRN (Reason: nausea and vomiting) Qty: 7 0RF No Action estradiol 1 EACH patch semiweekly 0.5 tab VAGINALLY BID PRN (Reason: vaginal dryness) sumatriptan 5 MG spray,non-aerosol 20 mg NS DAILY PRN PRN (Reason: migraines) bupropion HCl 150 mg tablet sustained-release 12 hr 150 mg PO BID Label Comments: TAKE 1 TABLET ORALLY TWICE PER DAY FOR 90 DAYS valacyclovir 1 gram tablet 1 tab PO DAILY Primary Care Provider: Kush Briscoe Chi Referrals: Kush Briscoe Chi, MD [Primary Care Provider] - As Needed Activity Restrictions/Additional Instructions: Plenty of fluids and rest. Zofran as needed for nausea. Follow-up with your doctor if not improving. Your CAT scan showed increased stool, increased bowel gas which may be the cause of all your pain also some inflammation of your colon. If not improving follow-up with a under cutting machine operator. Your labs were normal tonight. Disposition Disposition: Home, Self Care
--- NOTE | 2022-02-09 17:47 | NURSING ---
NO OLD EKGS
[2022-02-09 17:57] LABS: Mucous, Urine 0 SEEN /hpf (<or=2+); Red Blood Cells-Urine 0 SEEN /hpf (0-5); White Blood Cells 0 SEEN /hpf (0-5)
[2022-02-09] MEDS: Ondansetron 4 MG/2 ML Vial IV ×3 (18:01→21:19)
[2022-02-09] MEDS: 0.9% Normal Saline 1,000 ML 1000 ML IV (18:02)
[2022-02-09 18:04] LABS: Color, Urine Amber (Yellow); Glucose, Dipstick Normal (Normal); Ketone-Dipstick 5 mg/dl (Negative); Leukocyte Esterase-Dipstick 100 /ul (Negative); Nitrite-Dipstick Negative (Negative); Occult Blood-Urine 10 /ul (Negative); Protein-Dipstick 15 mg/dl (Negative); Urine Clarity Clear (Clear); Urine Urobilinogen 8 mg/dl (Normal)
[2022-02-09 18:08] LABS: Urine Bilirubin Dipstick 3 mg/dL (Negative)
[2022-02-09 18:15] LABS: Bacteria RARE /hpf (None Seen); Squamous Epithelial Cells - UA 0-5 SEEN /hpf (5-10)
[2022-02-09 18:17] LABS: Absolute Lymphocyte Count 0.38 X10^3/uL (0.83-4.51); Absolute Neutrophil Count 6.8 X10^3/uL (2.0-7.7); Basophil# 0.02 X10^3/uL; Basophil% 0.3 % (0-1); Hematocrit 43.4 % (37-47); Hemoglobin 14.2 g/dL (12.0-15.0); Lymphocyte # 0.38 X10^3/ul (0.83-4.51); Lymphocyte % 5.2 % (19-41); Mean Corp Hgb Conc 32.7 g/dL (32-36); Mean Corpuscular Hgb 32.6 pg (27.0-32.0); Mean Corpuscular Volume 99.5 fL (81-99); Mean Platelet Vol. 9.8 fl (6.2-12.0); Monocyte# 0.13 X10^3/uL; Monocyte% 1.8 % (0-10); NRBC Flagged by Analyzer 0 % (0-5); Neutrophil # 6.77 X10^3/uL (2.7-7.7); Neutrophil % 92.4 % (47-70); POSITIVE DIFFERENTIAL YES; Platelet Count 158 K/mm3 (150-450); RBC Distribution Width CV 13.2 % (11.6-14.6); RBC Distribution Width SD 48.6 fl (35.1-43.9); Red Blood Count 4.36 M/mm3 (4.2-5.4); White Blood Count 7.3 K/mm3 (4.4-11.0)
[2022-02-09 18:27] LABS: Differential Indicated SCAN CRITERIA MET
[2022-02-09 18:44] LABS: ALB/GLOB Ratio 1.1 RATIO (0.9-2.4); AST(SGOT) 36 U/L (15-37); Alanine Aminotransfer ALT/SGPT 30 U/L (13-56); Albumin, Serum 3.8 g/dL (3.2-5.0); Alkaline Phosphatase 82 U/L (45-117); Amylase 43 U/L (25-115); Anion Gap 7 (5-15); BUN 17 mg/dL (7-18); BUN/Creat Ratio 16.7 RATIO (10-20); Calcium,Total 8.8 mg/dL (8.5-10.1); Chloride 106 mmol/L (98-107); Creatinine, Serum 1.02 mg/dL (0.55-1.02); EST Glomerular Filtration Rate 57 mL/min (>60); Est Glom Filt Rate - Afr Amer 70 mL/min (>60); Estimated Creatinine Clearance 50.59 ml/min; Globulin 3.4 g/dL (2.2-4.2); Glucose 121 mg/dL (74-106); Lipase 67 U/L (73-393); Potassium 3.6 mmol/L (3.5-5.1); Protein, Total 7.2 g/dL (6.4-8.2); Sodium Level 139 mmol/L (136-145)
[2022-02-09 19:13] LABS: Anisocytosis RARE; Macrocytosis RARE; Platelet Estimate ADEQUATE (ADEQ); Red Cell Morphology N CHROM NORMAL (NORM C&C)
--- NOTE | 2022-02-09 19:47 | CT_ITS ---
INDICATION: suprapubic abd pain. Prior appendectomy years ago. EXAMINATION: CT ABDOMEN AND PELVIS WITH CONTRAST - CT Abdomen And Pelvis W/ Contrast Injection TECHNIQUE: Helically acquired images were obtained of the abdomen and pelvis following IV contrast. A radiation dose optimization technique was used for this scan. IV Contrast dosage and agent: 100 mL of [id number]. Oral contrast: None. COMPARISON: None. FINDINGS: LOWER CHEST: Lung bases are clear. No cardiomegaly or pericardial effusion. There is a small sliding hiatal hernia. LIVER: Peripheral right hepatic lobe hypodensity, less than 2 cm maximum diameter, with nodular peripheral enhancement likely representing a hemangioma. Normal size and density of the liver. GALLBLADDER AND BILIARY TREE: Gallbladder is mildly distended and there is mild intra and extrahepatic biliary ductal dilation with no visible biliary stone. No gallbladder wall thickening or pericholecystic fluid. PANCREAS: No focal cystic or solid mass. No ductal dilation. SPLEEN: Normal size without focal cystic or solid mass. ADRENAL GLANDS: No nodules. KIDNEYS, URETERS and BLADDER: Normal renal size and position. No mass. No hydronephrosis. Bladder is unremarkable. PERITONEUM: No ascites or free air. No other fluid collection. BOWEL: : Is diffusely, mildly distended with moderate stool load in the sigmoid colon and rectal vault. There is abnormal colonic wall thickening splenic flexure and descending colon. Small amount of adjacent fluid is also seen in the left pericolic gutter. There is questionable thickening of the terminal ileum and adjacent collapsed and mildly distended bowel loops with small amount of regional fluid. Small amount of free fluid in the pelvis. LYMPH NODES: No enlarged mesenteric or retroperitoneal lymph nodes. VESSELS: Aorta is non-dilated. REPRODUCTIVE ORGANS: Fibroid uterus. Small ovaries. ABDOMINAL WALL: No discrete abdominal or pelvic wall hernia. BONES: Degenerative changes spine and symphysis pubis. Sacroiliac shadowing stone or inflammatory changes. CT/Abdomen/Pelvis W IV Cont ONLY IMPRESSION: Descending colon and distal ileal inflammatory changes with small amount of surrounding fluid fluid and some free fluid in the pelvis suspicious for inflammatory bowel. Infectious colitis, enteritis could have a similar appearance. Mildly distended gallbladder with mild intra and extrahepatic biliary ductal dilation. Correlation with ultrasound is recommended. No visible biliary stone or obstructing mass visible. Correlate for structural biliary pattern. Right hepatic lobe hemangioma. Small sliding hiatal hernia. Electronically Signed: Med Galeas DO at 23:03 EDT ,
[2022-02-09] MEDS: Morphine 4 MG/ML Syringe 6 MG IV (19:57)
[2022-02-09 23:18] VITALS: BP 105/71
== END 2022-02-09 23:21 | disposition home or self-care (01) ==
PROVIDERS: Emergency Provider Emergency Medicine; PCP Family Medicine Geriatric Medicine; Visit Provider Emergency Medicine
DX: K59.00 Constipation, unspecified (principal); K52.9 Noninfective gastroenteritis and colitis, unspecified
CPT/HCPCS: 74177; 80053; 81001; 82150; 83690; 85025; 93005; 96361; 96374; 96375; 96376; 99284; J7030; Q9967; A4216; J2405

== ENCOUNTER → 2022-03-29 | Outpatient (CLI) | payer MEDICARE, OTHER, SELFPAY ==
[2022-03-29 12:31] LABS: Absolute Lymphocyte Count 2.01 X10^3/uL (0.83-4.51); Absolute Neutrophil Count 1.7 X10^3/uL (2.0-7.7); Basophil# 0.03 X10^3/uL; Basophil% 0.7 % (0-1); Hematocrit 38.6 % (37-47); Hemoglobin 12.4 g/dL (12.0-15.0); Lymphocyte # 2.01 X10^3/ul (0.83-4.51); Mean Corp Hgb Conc 32.1 g/dL (32-36); Mean Corpuscular Hgb 32.3 pg (27.0-32.0); Mean Corpuscular Volume 100.5 fL (81-99); Monocyte# 0.58 X10^3/uL; Monocyte% 13.6 % (0-10); NRBC Flagged by Analyzer 0 % (0-5); Neutrophil # 1.66 X10^3/uL (2.7-7.7); Neutrophil % 38.7 % (47-70); Platelet Count 173 K/mm3 (150-450); RBC Distribution Width CV 13.1 % (11.6-14.6); RBC Distribution Width SD 48.7 fl (35.1-43.9); Red Blood Count 3.84 M/mm3 (4.2-5.4); White Blood Count 4.3 K/mm3 (4.4-11.0)
[2022-03-29 13:26] LABS: ALB/GLOB Ratio 1.1 RATIO (0.9-2.4); AST(SGOT) 18 U/L (15-37); Alanine Aminotransfer ALT/SGPT 21 U/L (13-56); Albumin, Serum 3.6 g/dL (3.2-5.0); Alkaline Phosphatase 56 U/L (45-117); Anion Gap 8 (5-15); BUN 19 mg/dL (7-18); BUN/Creat Ratio 19.2 RATIO (10-20); Calcium,Total 8.4 mg/dL (8.5-10.1); Chloride 105 mmol/L (98-107); Creatinine, Serum 0.99 mg/dL (0.55-1.02); EST Glomerular Filtration Rate 60 mL/min (>60); Est Glom Filt Rate - Afr Amer 72 mL/min (>60); Globulin 3.3 g/dL (2.2-4.2); Glucose 82 mg/dL (74-106); Potassium 4.6 mmol/L (3.5-5.1); Protein, Total 6.9 g/dL (6.4-8.2); Sodium Level 139 mmol/L (136-145); Thyroid Stim Hormone (TSH) 2.37 uIU/mL (0.358-3.74)
== END | disposition home or self-care (01) ==
LOC: POLAB3 09:21
PROVIDERS: PCP Family Medicine Geriatric Medicine; Visit Provider Family Medicine Geriatric Medicine
DX: R53.83 Other fatigue (principal); E55.9 Vitamin D deficiency, unspecified
CPT/HCPCS: 36415; 80053; 82306; 84443; 85025

== ENCOUNTER → 2022-04-10 | Outpatient (CLI) | payer MEDICARE, OTHER, SELFPAY ==
--- NOTE | 2022-04-10 09:00 | BD_ITS ---
STUDY: DUAL ENERGY X-RAY ABSORPTIOMETRY / DXA REASON FOR EXAM: Female, 67 years old. [id number]. Patient is postmenopausal. TECHNIQUE: Bone Mineral Density (BMD) measurements of lumbar spine and right hip were obtained. COMPARISON: None. FINDINGS: Lumbar Spine (L1-L4): g/cm2 (1.029) / T-score (-0.1) / Z-score (1.8) Findings are suggestive of normal bone density with a low fracture risk. Right Femur Total: g/cm2 (0.829) / T-score (-0.9) / Z-score (0.4) Right Femoral Neck: g/cm2 (0.654) / T-score (-1.8) / Z-score (-0.1) BD/Dexa Bone Density Study IMPRESSION: The patient is considered osteopenic as outlined below according to World Sammy Organization (WHO) criteria with a moderate fracture risk. Reference Information: The T-score is the number of standard deviations above or below the standard which is normal for young adults at their peak bone mineral density. The World Health Organization (WHO) interprets the T-scores as follows: Above -1 Normal bone density Between -1 and -2.5 Osteopenia Equal to / or below -2.5 Osteoporosis As a practical clinical guideline, osteopenia may be graded as follows: Mild -1 through -1.5 Moderate -1.6 through -2.0 Severe -2.1 through -2.4 The Z-score is the number of standard deviations above or below age-matched controls. A Z-score of less than -1.5 would be considered abnormal. References: 1. NIH Osteoporosis and Related Bone Diseases www osteo.org 2. International Society for Clinical Densitometry www iscd.org 3. National Osteoporosis Foundation www nof.org Electronically Signed: Jalen Keane MD at 13:45 EDT ,
== END | disposition home or self-care (01) ==
LOC: OPBD 08:54
PROVIDERS: PCP Family Medicine Geriatric Medicine; Visit Provider Family Medicine Geriatric Medicine
DX: Z78.0 Asymptomatic menopausal state (principal); M85.80 Other specified disorders of bone density and structure, unspecified site
CPT/HCPCS: 77080

== ENCOUNTER → 2022-05-21 | Outpatient (CLI) | payer MEDICARE, OTHER, SELFPAY | END | disposition home or self-care (01) | LOC: PSN 09:11 | PROVIDERS: PCP Family Medicine Geriatric Medicine; Referring Provider Family Medicine Geriatric Medicine; Visit Provider Family Medicine Geriatric Medicine | DX: R68.83 Chills (without fever) (principal); Z20.822 Contact with and (suspected) exposure to COVID-19 | CPT/HCPCS: 87635; 87804; 87807; C9803; U0003; U0005 ==

== ENCOUNTER → 2022-06-28 | Outpatient (CLI) | payer MEDICARE, OTHER, SELFPAY | END | disposition home or self-care (01) | PROVIDERS: PCP Family Medicine Geriatric Medicine; Referring Provider Family Medicine Geriatric Medicine; Visit Provider Family Medicine Geriatric Medicine | DX: R68.83 Chills (without fever) (principal); Z20.822 Contact with and (suspected) exposure to COVID-19 | CPT/HCPCS: 87635; 87804; 87807; U0003; U0005 ==

== ENCOUNTER 2022-12-25 05:44 | Emergency (ER) | payer MEDICARE, OTHER, SELFPAY ==
[2022-12-25 05:46] VITALS: BP 121/77; PULSE 85; RESP 18; TEMP 36.1; O2SAT 99; BMI 21.6
--- NOTE | 2022-12-25 06:13 | EDS_ITS ---
HPI HPI - GI History of Present Illness Chief Complaint: Abd Pain Informant: patient Abdominal Pain/Flank Pain Onset: Yesterday Context: Gradual Onset Timing: Continuous Quality: Cramping Location: Diffuse Current Severity: Severe Maximum Severity: Severe Worsened by: Nothing Relieved by: Nothing Nausea/Vomiting/Emesis GI Symptom: Positive for Nausea and Vomiting Onset: Yesterday Quality: Positive for Nonbilious; Negative for Blood streaks, Coffee ground or Hematemesis Diarrhea/Melena/Hematochezia GI Symptom: Positive for Diarrhea; Negative for Melena or Hematochezia Onset: Today Stool Quality: Positive for Loose Associated Symptoms Associated Symptoms: Positive for Frequency; Negative for Dysuria or Hematuria Narrative Narrative: Patient presents with abdominal pain that began last night. Patient states it is gradually gotten worse. Patient states that became severe today. Patient states it is diffuse across her abdomen. Patient describes it as cramping. Patient states she has a history of IBS and this feels similar to prior episodes. Patient states nothing makes it better. Patient admits to some nausea and vomiting. Patient denies any hematemesis or coffee-ground emesis. Patient admits to some diarrhea. Patient states it is loose. Patient denies any melena or hematochezia. Patient admits to some urinary frequency but denies any dysuria or hematuria. Patient denies any fevers or chills. [facility] Medical History Alcohol use Back pain Depression Hemorrhoids History of IBS History of steroid therapy Insomnia, unspecified Migraine headache Non-smoker Post-menopausal Shortness of breath on exertion Wears glasses Home Medications sumatriptan 5 mg/actuation nasal spray 20 mg NS DAILY PRN PRN migraines 05/31/20 [History Last Taken Unknown] bupropion HCl 150 mg tablet,12 hr sustained-release 150 mg PO BID 02/09/22 [History Last Taken Unknown] progesterone micronized 100 mg capsule 100 mg PO QAM 05/29/22 [History Last Taken Unknown] biotin 5 mg capsule 5 mg PO DAILY 07/29/22 [History Last Taken Unknown] estradiol 0.5 mg tablet 0.5 mg PO DAILY 07/29/22 [History Last Taken Unknown] multivitamin 1 tab PO DAILY 07/29/22 [History Last Taken Unknown] vitamin A 2,400 mcg capsule 2,400 mcg PO DAILY 07/29/22 [History Last Taken Unknown] dicyclomine 10 mg capsule 20 mg PO TIDAC #20 CAPSULES 12/25/22 [Rx Last Taken Unknown] ondansetron 4 mg disintegrating tablet 4 mg PO Q8H PRN PRN Nausea #10 tabs 12/25/22 [Rx Last Taken Unknown] Allergy/AdvReac Type Severity Reaction Status Date / Time No Known Allergies Allergy Verified 12/25/22 05:46 Surgical History H/O breast augmentation History of appendectomy History of colonoscopy History of facelift History of tonsillectomy Hx of rhinoplasty Social History Smoking Status: Never smoker ROS ROS ED Constitutional Constitutional ED: Denies chills or fever(s) Eyes Eyes: Denies blurry vision or change in vision ENT ENT ED: Denies rhinorrhea or sore throat Cardiovascular Cardiovascular: Denies chest pain or palpitations Respiratory/Chest Respiratory/Chest: Denies cough or dyspnea Gastrointestinal Gastrointestinal: Reports abdominal pain, diarrhea, nausea and vomiting Genitourinary Genitourinary ED: Denies dysuria or hematuria Musculoskeletal Musculoskeletal: Denies back pain or neck pain Integumentary Denies abscess or rash Neurologic Neurologic: Denies headache(s) or weakness Allergic/Immunologic Allergic/Immunologic ED: Denies mouth swelling or urticaria EXAM Physical Exam Const Vital Signs: 12/25/22 05:46 Temperature 97 F L Temperature Source Temporal Pulse Rate 85 Respiratory Rate 18 Blood Pressure 121/77 H Blood Pressure Mean 91 Pulse Ox 99 Oxygen Delivery Method Room Air Positive well nourished and well developed General Appearance ED: well developed and NAD HEENT Reports moist mucous membranes Neck supple and no JVD Resp normal respiratory effort and clear to auscultation bilaterally Cardio regular rate and regular rhythm GI Palpation: soft and tender epigastric, LLQ, RLQ, LUQ, RUQ, periumbilical and suprapubic; Negative for guarding or rebound tenderness present Neuro CN's II-XII intact bilaterally, moves all extremities and no sensory deficits noted Sensorium / Orientation: alert Motor Exam: strength 5/5 throughout Psych mental status grossly normal MDM MDM MDM Narrative Medical decision making narrative: Differential diagnosis includes irritable bowel syndrome, gastroenteritis, peptic ulcer disease, pancreatitis, pyelonephritis, urinary tract infection, bowel obstruction, and perforation. CBC will be obtained to assess for leukocytosis and anemia. Comprehensive metabolic profile will be obtained to assess for hepatic function, renal function, and electrolyte abnormality. Lipase will be obtained to assess for pancreatitis. Urinalysis will be obtained to assess for urinary tract infection. Lab Data Attestation: I reviewed the patient's lab results. Lab results narrative: CBC was reviewed. White blood cell count was slightly elevated at 11.1. The remainder is within normal limits. Comprehensive metabolic profile was reviewed. Glucose was slightly elevated at 128. The remainder is within normal limits. Lipase was reviewed and was normal at 21. Urinalysis was reviewed. There is no evidence of urinary tract infection or hematuria. Labs: Laboratory Results - last 24 hr 12/25/22 12/25/22 12/25/22 06:06 06:06 07:00 WBC 11.1 H RBC 4.80 Hgb 14.8 Hct 43.6 MCV 90.8 MCH 30.8 MCHC 33.9 RDW Std Deviation 44.0 H RDW Coeff of Moise 13.1 Plt Count 261 MPV 10.5 Immature Gran % (Auto) 0.600 Neut % (Auto) 82.6 H Lymph % (Auto) 9.5 L [place] % (Auto) 7.0 Eos % (Auto) 0.0 Baso % (Auto) 0.3 Absolute Neuts (auto) 9.2 H Absolute Lymphs (auto) 1.05 Nucleated RBC % 0 Sodium 136 Potassium 4.0 Chloride 103 Carbon Dioxide 25.0 Anion Gap 8 BUN 18 Creatinine 0.82 Estim Creat Clear Calc 64.74 Est GFR (MDRD) Af Amer 90 Est GFR (MDRD) Non-Af 74 BUN/Creatinine Ratio 22.1 H Glucose 128 H Calcium 8.9 Total Bilirubin 0.60 AST 20 ALT 25 Alkaline Phosphatase 94 Total Protein 7.2 Albumin 3.7 Globulin 3.5 Albumin/Globulin Ratio 1.1 Lipase 21 Urine Color Yellow Urine Clarity Clear Urine pH 6.5 Ur Specific [place] 1.010 Urine Protein Negative Urine Glucose (UA) Normal Urine Ketones Negative Urine Occult Blood 50 H Urine Nitrite Negative Urine Bilirubin Negative Urine Urobilinogen Normal Ur Leukocyte Esterase Negative Urine RBC 0-5 SEEN Urine WBC 0 SEEN Ur Squamous Epith Cells 0 SEEN Urine Bacteria 0 SEEN Urine Mucus 0 SEEN Treatment and Re-Evaluation :: Patient was given IV fluids, morphine, and Zofran. Patient is feeling better on reevaluation. Patient was advised of her findings. Patient was given prescription for Zofran and Bentyl. Patient was instructed to follow-up with her primary care physician in 5 to 7 days. Patient was instructed to start with a liquid diet and advance as tolerated. Patient understood and was agreeable with the plan. All questions were answered. Discharge Plan Triage Chief Complaint: Abd Pain ED Provider: Spenser Amato Dx/Rx/DC Orders Clinical Impression: Abdominal pain, IBS (irritable bowel syndrome) Instructions: ED Abdominal Pain Unkn Cause Fem, ED Irritable Bowel Syndrome Prescriptions: New ondansetron [ondansetron] 4 mg tablet,disintegrating 4 mg PO Q8H PRN PRN (Reason: Nausea) Qty: 10 0RF dicyclomine 10 mg capsule 20 mg PO TIDAC Qty: 20 0RF No Action progesterone micronized 100 mg capsule 100 mg PO QAM Rx Instructions: TAKE 10 DAYS 1ST OF THE MONTH THEN DONE; repeat cycle sumatriptan 5 MG spray,non-aerosol 20 mg NS DAILY PRN PRN (Reason: migraines) bupropion HCl 150 mg tablet sustained-release 12 hr 150 mg PO BID Label Comments: TAKE 1 TABLET ORALLY TWICE PER DAY FOR 90 DAYS multivitamin Tablet 1 tab PO DAILY vitamin A 2,400 mcg Capsule 2,400 mcg PO DAILY biotin 5 mg Capsule 5 mg PO DAILY estradiol 0.5 mg tablet 0.5 mg PO DAILY Label Comments: TAKE 1 TABLET BY MOUTH EVERY DAY Primary Care Provider: Kush Briscoe Chi Referrals: Kush Briscoe Chi, MD [Primary Care Provider] - 5-7 Days Disposition Disposition: Home, Self Care
[2022-12-25 06:31] LABS: Absolute Lymphocyte Count 1.05 X10^3/uL (0.83-4.51); Absolute Neutrophil Count 9.2 X10^3/uL (2.0-7.7); Basophil# 0.03 X10^3/uL; Basophil% 0.3 % (0-1); Hematocrit 43.6 % (37-47); Hemoglobin 14.8 g/dL (12.0-15.0); Lymphocyte # 1.05 X10^3/ul (0.83-4.51); Lymphocyte % 9.5 % (19-41); Mean Corp Hgb Conc 33.9 g/dL (32-36); Mean Corpuscular Hgb 30.8 pg (27.0-32.0); Mean Corpuscular Volume 90.8 fL (81-99); Mean Platelet Vol. 10.5 fl (6.2-12.0); Monocyte# 0.78 X10^3/uL; NRBC Flagged by Analyzer 0 % (0-5); Neutrophil # 9.15 X10^3/uL (2.7-7.7); Neutrophil % 82.6 % (47-70); Platelet Count 261 K/mm3 (150-450); RBC Distribution Width CV 13.1 % (11.6-14.6); White Blood Count 11.1 K/mm3 (4.4-11.0)
[2022-12-25 06:47] LABS: ALB/GLOB Ratio 1.1 RATIO (0.9-2.4); AST(SGOT) 20 U/L (15-37); Alanine Aminotransfer ALT/SGPT 25 U/L (13-56); Albumin, Serum 3.7 g/dL (3.2-5.0); Alkaline Phosphatase 94 U/L (45-117); Anion Gap 8 (5-15); BUN 18 mg/dL (7-18); BUN/Creat Ratio 22.1 RATIO (10-20); Calcium,Total 8.9 mg/dL (8.5-10.1); Chloride 103 mmol/L (98-107); Creatinine, Serum 0.82 mg/dL (0.55-1.02); EST Glomerular Filtration Rate 74 mL/min (>60); Est Glom Filt Rate - Afr Amer 90 mL/min (>60); Estimated Creatinine Clearance 64.74 ml/min; Globulin 3.5 g/dL (2.2-4.2); Glucose 128 mg/dL (74-106); Lipase 21 U/L (13-75); Protein, Total 7.2 g/dL (6.4-8.2); Sodium Level 136 mmol/L (136-145)
[2022-12-25] MEDS: 0.9% Normal Saline 1,000 ML 1000 ML IV (06:53)
[2022-12-25] MEDS: Ondansetron 4 MG/2 ML Vial IV (06:53)
[2022-12-25] MEDS: Morphine 4 MG/ML Syringe IV (06:53)
[2022-12-25 07:10] LABS: Bacteria 0 SEEN /hpf (None Seen); Mucous, Urine 0 SEEN /hpf (<or=2+); Squamous Epithelial Cells - UA 0 SEEN /hpf (5-10); White Blood Cells 0 SEEN /hpf (0-5)
[2022-12-25 07:13] LABS: Color, Urine Yellow (Yellow); Glucose, Dipstick Normal (Normal); Ketone-Dipstick Negative (Negative); Leukocyte Esterase-Dipstick Negative /ul (Negative); Nitrite-Dipstick Negative (Negative); Occult Blood-Urine 50 /ul (Negative); Protein-Dipstick Negative (Negative); Urine Bilirubin Dipstick Negative (Negative); Urine Clarity Clear (Clear); Urine Urobilinogen Normal (Normal); Urine pH 6.5 (5.0 - 8.0)
[2022-12-25 07:31] LABS: Red Blood Cells-Urine 0-5 SEEN /hpf (0-5)
[2022-12-25 07:59] VITALS: BP 134/69; PULSE 72; RESP 15; O2SAT 97
== END 2022-12-25 08:01 | disposition home or self-care (01) ==
PROVIDERS: Emergency Provider Emergency Medicine; PCP Family Medicine Geriatric Medicine; Visit Provider Emergency Medicine
DX: K58.0 Irritable bowel syndrome with diarrhea (principal); R35.0 Frequency of micturition
CPT/HCPCS: 80053; 81001; 83690; 85025; 96361; 96374; 96375; 99282; A4216; J2405

== ENCOUNTER → 2023-03-31 | Outpatient (CLI) | payer MEDICARE, OTHER, SELFPAY ==
[2023-03-31 10:59] LABS: Absolute Lymphocyte Count 1.44 X10^3/uL (0.83-4.51); Absolute Neutrophil Count 2.4 X10^3/uL (2.0-7.7); Basophil# 0.06 X10^3/uL; Basophil% 1.3 % (0-1); Eosinophil# 0.12 X10^3/uL; Eosinophils% 2.6 % (0-5); Hematocrit 41.6 % (37-47); Hemoglobin 13.3 g/dL (12.0-15.0); Lymphocyte # 1.44 X10^3/ul (0.83-4.51); Lymphocyte % 31.4 % (19-41); Mean Corpuscular Hgb 29.9 pg (27.0-32.0); Mean Corpuscular Volume 93.5 fL (81-99); Mean Platelet Vol. 10.2 fl (6.2-12.0); Monocyte# 0.53 X10^3/uL; Monocyte% 11.6 % (0-10); NRBC Flagged by Analyzer 0 % (0-5); Neutrophil # 2.42 X10^3/uL (2.7-7.7); Neutrophil % 52.9 % (47-70); Platelet Count 207 K/mm3 (150-450); RBC Distribution Width CV 13.2 % (11.6-14.6); RBC Distribution Width SD 45.1 fl (35.1-43.9); Red Blood Count 4.45 M/mm3 (4.2-5.4); White Blood Count 4.6 K/mm3 (4.4-11.0)
[2023-03-31 11:15] LABS: Vitamin D,25 Hydroxy 63.1 ng/mL
[2023-03-31 11:24] LABS: ALB/GLOB Ratio 1.2 RATIO (0.9-2.4); AST(SGOT) 22 U/L (15-37); Alanine Aminotransfer ALT/SGPT 25 U/L (13-56); Albumin, Serum 3.8 g/dL (3.2-5.0); Alkaline Phosphatase 71 U/L (45-117); Anion Gap 6 (5-15); BUN 18 mg/dL (7-18); BUN/Creat Ratio 17.3 RATIO (10-20); Calcium,Total 8.5 mg/dL (8.5-10.1); Chloride 105 mmol/L (98-107); Creatinine, Serum 1.04 mg/dL (0.55-1.02); EST Glomerular Filtration Rate 56 mL/min (>60); Est Glom Filt Rate - Afr Amer 68 mL/min (>60); Globulin 3.3 g/dL (2.2-4.2); Glucose 102 mg/dL (74-106); Potassium 3.8 mmol/L (3.5-5.1); Protein, Total 7.1 g/dL (6.4-8.2); Sodium Level 140 mmol/L (136-145); Thyroid Stim Hormone (TSH) 3.69 uIU/mL (0.358-3.74)
== END | disposition home or self-care (01) ==
LOC: POLAB3 10:00
PROVIDERS: PCP Family Medicine Geriatric Medicine; Visit Provider Family Medicine Geriatric Medicine
DX: R53.83 Other fatigue (principal); E55.9 Vitamin D deficiency, unspecified
CPT/HCPCS: 36415; 80053; 82306; 84443; 85025

== ENCOUNTER → 2023-04-29 | Outpatient (CLI) | payer MEDICARE, OTHER, SELFPAY | END | disposition home or self-care (01) | PROVIDERS: PCP Family Medicine Geriatric Medicine; Referring Provider Family Medicine Geriatric Medicine; Visit Provider Family Medicine Geriatric Medicine | DX: R68.83 Chills (without fever) (principal) | CPT/HCPCS: 87635; 87804; 87807 ==

== ENCOUNTER → 2023-05-05 | Outpatient (CLI) | payer MEDICARE, OTHER, SELFPAY ==
--- NOTE | 2023-05-05 16:43 | RAD_ITS ---
STUDY: X-RAY CHEST REASON FOR EXAM: Female, 68 years old. WHEEZING TECHNIQUE: PA and lateral views of the chest. COMPARISON: None. FINDINGS: The lungs are clear and expanded. There is no demonstrated pleural abnormality. Normal size heart. Normal mediastinum and john. Normal visualized pulmonary arteries. Normal visualized aortic arch and descending thoracic aorta. Normal visualized thoracic spine. Normal visualized ribs, clavicles, and shoulders. There is no demonstrated abnormality of the visualized soft tissue structures of the upper abdomen. RAD/Chest PA and Lateral IMPRESSION: Normal x-ray examination of the chest. Electronically Signed: Oleg Parada MD at 18:42 EDT ,
[2023-05-05 17:06] LABS: Absolute Lymphocyte Count 2.67 X10^3/uL (0.83-4.51); Absolute Neutrophil Count 5.6 X10^3/uL (2.0-7.7); Basophil# 0.09 X10^3/uL; Basophil% 0.9 % (0-1); Eosinophils% 6.8 % (0-5); Hematocrit 42.2 % (37-47); Hemoglobin 13.5 g/dL (12.0-15.0); Lymphocyte # 2.67 X10^3/ul (0.83-4.51); Mean Corpuscular Hgb 29.7 pg (27.0-32.0); Monocyte% 10.7 % (0-10); NRBC Flagged by Analyzer 0 % (0-5); Neutrophil # 5.62 X10^3/uL (2.7-7.7); Neutrophil % 54.6 % (47-70); POSITIVE MORPHOLOGY YES; Platelet Count 277 K/mm3 (150-450); RBC Distribution Width CV 13.5 % (11.6-14.6); Red Blood Count 4.54 M/mm3 (4.2-5.4); White Blood Count 10.3 K/mm3 (4.4-11.0)
[2023-05-05 17:12] LABS: Differential Indicated SCAN CRITERIA MET
[2023-05-05 17:18] LABS: ALB/GLOB Ratio 1.1 RATIO (0.9-2.4); AST(SGOT) 16 U/L (15-37); Alanine Aminotransfer ALT/SGPT 32 U/L (13-56); Albumin, Serum 3.8 g/dL (3.2-5.0); Alkaline Phosphatase 87 U/L (45-117); Anion Gap 3 (5-15); BUN 22 mg/dL (7-18); BUN/Creat Ratio 22.3 RATIO (10-20); Calcium,Total 8.8 mg/dL (8.5-10.1); Chloride 105 mmol/L (98-107); Creatinine, Serum 0.98 mg/dL (0.55-1.02); EST Glomerular Filtration Rate 60 mL/min (>60); Est Glom Filt Rate - Afr Amer 72 mL/min (>60); Globulin 3.5 g/dL (2.2-4.2); Glucose 153 mg/dL (74-106); Potassium 3.8 mmol/L (3.5-5.1); Protein, Total 7.3 g/dL (6.4-8.2); Sodium Level 137 mmol/L (136-145)
[2023-05-05 19:41] LABS: Differential Comment SCANNED
== END | disposition home or self-care (01) ==
PROVIDERS: PCP Family Medicine Geriatric Medicine; Referring Provider Family Medicine Geriatric Medicine; Visit Provider Family Medicine Geriatric Medicine
DX: R06.2 Wheezing (principal); R05.9 Cough, unspecified
CPT/HCPCS: 71046; 80053; 85025; 87449

== ENCOUNTER → 2023-05-06 | Outpatient (CLI) | payer MEDICARE, OTHER, SELFPAY | END | disposition home or self-care (01) | LOC: PSN 10:02 | PROVIDERS: PCP Family Medicine Geriatric Medicine; Referring Provider Family Medicine Geriatric Medicine; Visit Provider Family Medicine Geriatric Medicine | DX: R68.83 Chills (without fever) (principal) | CPT/HCPCS: 87635; 87804; 87807; C9803 ==

== ENCOUNTER 2023-08-12 10:06 | Emergency (ER) | payer MEDICARE, OTHER, SELFPAY ==
[2023-08-12 10:07] VITALS: BP 128/88; PULSE 103; RESP 16; TEMP 36.3; O2SAT 100; BMI 23.3
--- NOTE | 2023-08-12 11:23 | ED.RN ---
PT DECIDED SHE DID WANT TO WAIT. LWBS
== END 2023-08-12 11:00 | disposition left against medical advice (07) ==
LOC: ED 11:33
PROVIDERS: PCP Family Medicine Geriatric Medicine
DX: Z53.21 Procedure and treatment not carried out due to patient leaving prior to being seen by health care provider (principal)

== ENCOUNTER 2023-08-13 05:54 | Inpatient (IN) | payer MEDICARE, OTHER, SELFPAY ==
[2023-08-13 05:55] VITALS: BP 137/73; PULSE 98; RESP 18; TEMP 36.4; O2SAT 97; BMI 23.2
--- NOTE | 2023-08-13 06:31 | ED.RN ---
PT TAKES 2 VALIUMS AND 2 OXYS PER DAY
[2023-08-13 06:33] LABS: Absolute Lymphocyte Count 2.46 X10^3/uL (0.83-4.51); Absolute Neutrophil Count 4.7 X10^3/uL (2.0-7.7); Basophil# 0.07 X10^3/uL; Basophil% 0.9 % (0-1); Eosinophil# 0.13 X10^3/uL; Eosinophils% 1.6 % (0-5); Hematocrit 46.5 % (37-47); Hemoglobin 14.6 g/dL (12.0-15.0); Lymphocyte # 2.46 X10^3/ul (0.83-4.51); Lymphocyte % 29.9 % (19-41); Mean Corp Hgb Conc 31.4 g/dL (32-36); Mean Corpuscular Hgb 30.1 pg (27.0-32.0); Mean Corpuscular Volume 95.9 fL (81-99); Mean Platelet Vol. 9.7 fl (6.2-12.0); Monocyte% 9.7 % (0-10); NRBC Flagged by Analyzer 0 % (0-5); Neutrophil # 4.69 X10^3/uL (2.7-7.7); Platelet Count 278 K/mm3 (150-450); RBC Distribution Width CV 14.3 % (11.6-14.6); RBC Distribution Width SD 50.7 fl (35.1-43.9); Red Blood Count 4.85 M/mm3 (4.2-5.4); White Blood Count 8.2 K/mm3 (4.4-11.0)
[2023-08-13 06:50] LABS: ALB/GLOB Ratio 1.1 RATIO (0.9-2.4); AST(SGOT) 18 U/L (15-37); Alanine Aminotransfer ALT/SGPT 27 U/L (13-56); Albumin, Serum 4.2 g/dL (3.2-5.0); Alkaline Phosphatase 103 U/L (45-117); Anion Gap 7 (5-15); BUN 17 mg/dL (7-18); BUN/Creat Ratio 15.2 RATIO (10-20); Calcium,Total 9.7 mg/dL (8.5-10.1); Chloride 106 mmol/L (98-107); Creatinine, Serum 1.12 mg/dL (0.55-1.02); EST Glomerular Filtration Rate 51 mL/min (>60); Est Glom Filt Rate - Afr Amer 62 mL/min (>60); Estimated Creatinine Clearance 46.75 ml/min; Globulin 3.8 g/dL (2.2-4.2); Glucose 139 mg/dL (74-106); Potassium 3.5 mmol/L (3.5-5.1); Sodium Level 139 mmol/L (136-145)
[2023-08-13 06:57] LABS: Amphetamine Urine VISTA NEGATIVE (<1000 ng/mL); Barbiturate Urine VISTA NEGATIVE (< 200 ng/mL); Benzodiazepine Urine VISTA POSITIVE (< 200 ng/mL); Cocaine Urine VISTA NEGATIVE (< 300 ng/mL); Ecstacy Urine VISTA NEGATIVE (< 500 ng/mL); Methadone Urine VISTA NEGATIVE (< 300 ng/mL); PCP Urine VISTA NEGATIVE (< 25 ng/mL); THC Urine VISTA NEGATIVE (< 50 ng/mL); Vista UDS pH Range 5
[2023-08-13 07:05] LABS: Alcohol, Blood (Medical)-Serum < 3.0 mg/dL
--- NOTE | 2023-08-13 07:12 | EX.ED.SAOD ---
HPI History of Present Illness Chief Complaint: Substance Abuse Informant: patient Narrative Narrative: Patient is a 68-year-old female with history of opioid dependency, polysubstance abuse and migraines presenting for detox. Patient states that she has been regularly using Valium and oxycodone for the past 2 years. She states she most recently has been taking 10 mg of Valium and 20 mg of oxycodone IR daily. She states she gets it from her [id number]. She notes that she did detox about 3 and half years ago and was sober for about a year and a half but has been steadily been using more over the past 2 years. Will get withdrawal symptoms including shaking and sweating if she does not take these. Denies any alcohol use for the past month. Does report some depression but states she feels safe at home. Last had a 5 mg Valium at 330 this morning and 5 mg Valium and 10 mg oxycodone at 8 PM. No other complaints or concerns at this time. [facility] Medical History Alcohol use Back pain Depression Hemorrhoids History of IBS History of steroid therapy Hx of colonic polyps Insomnia, unspecified Migraine headache Non-smoker Post-menopausal Shortness of breath on exertion Wears glasses Home Medications sumatriptan 5 mg/actuation nasal spray 20 mg NS DAILY PRN PRN migraines 05/31/20 [History Last Taken Unknown] bupropion HCl 150 mg tablet,12 hr sustained-release 150 mg PO BID 02/09/22 [History Last Taken Unknown] multivitamin 1 tab PO DAILY 07/29/22 [History Last Taken Unknown] valacyclovir 1 gram tablet (Valtrex) 1,000 mg PO DAILY 04/28/23 [History Last Taken Unknown] zolpidem 10 mg tablet 10 mg PO QHS PRN insomnia 04/28/23 [History Last Taken Unknown] caffeine 200 mg tablet (Awake) 200 mg PO DAILY PRN fatigue 08/13/23 [History Last Taken Unknown] Allergy/AdvReac Type Severity Reaction Status Date / Time bisacodyl AdvReac Severe Vomiting Verified 04/28/23 09:50 [From Dulcolax (bisacodyl)] polyethylene glycol 3350 AdvReac Severe Vomiting Verified 04/28/23 09:50 [From Miralax] Surgical History H/O breast augmentation History of appendectomy History of colonoscopy History of facelift History of mandibular surgery History of tonsillectomy Hx of rhinoplasty Social History household members: spouse current occupational status: employed Smoking Status: Never smoker ROS ROS ED Constitutional Constitutional ED: Reports sweats; Denies chills or fever(s) Eyes Eyes: Denies change in vision Cardiovascular Cardiovascular: Denies chest pain Respiratory/Chest Respiratory/Chest: Denies cough Gastrointestinal Gastrointestinal: Denies abdominal pain, nausea or vomiting Musculoskeletal Musculoskeletal: Denies arthralgias or myalgias Integumentary Denies rash Neurologic Neurologic: Reports headache(s) Psychiatric Psychiatric: Reports depression; Denies suicidal ideation or suicidal thoughts EXAM Physical Exam Const Vital Signs: 08/13/23 05:55 Temperature 97.5 F L Temperature Source Oral Pulse Rate 98 Respiratory Rate 18 Blood Pressure 137/73 H Blood Pressure Mean 94 Pulse Ox 97 Oxygen Delivery Method Room Air Positive well nourished and well developed General Appearance ED: well developed and NAD HEENT Reports moist mucous membranes Eyes PERRL Neck supple Chest Wall inspection of chest normal Resp normal respiratory effort and clear to auscultation bilaterally Cardio regular rate and regular rhythm GI soft to palpation Neuro oriented x3 Neuro Narrative: No tremor appreciated Sensorium / Orientation: alert Speech: speech normal Motor Exam: Negative for general weakness Psych mental status grossly normal Mood & Affect: depressed; Negative for anxious Skin Rashes: no rashes MDM MDM MDM Narrative Medical decision making narrative: Patient is evaluate for desire for detox from Valium and Percocet. Medical screening obtained for the ramp program. Patient is positive for benzodiazepines. Vital signs largely normal at this time however patient not having any withdrawal symptoms. I will contact hospitalist for admission for detox from opioids as well as benzodiazepines. Lab Data Attestation: I reviewed the patient's lab results. Labs: Laboratory Results - last 24 hr 08/13/23 08/13/23 06:10 06:20 WBC 8.2 RBC 4.85 Hgb 14.6 Hct 46.5 MCV 95.9 MCH 30.1 MCHC 31.4 L RDW Std Deviation 50.7 H RDW Coeff of Moise 14.3 Plt Count 278 MPV 9.7 Immature Gran % (Auto) 0.900 Neut % (Auto) 57.0 Lymph % (Auto) 29.9 [place] % (Auto) 9.7 Eos % (Auto) 1.6 Baso % (Auto) 0.9 Absolute Neuts (auto) 4.7 Absolute Lymphs (auto) 2.46 Nucleated RBC % 0 Sodium 139 Potassium 3.5 Chloride 106 Carbon Dioxide 26.0 Anion Gap 7 BUN 17 Creatinine 1.12 H Estim Creat Clear Calc 46.75 Est GFR (MDRD) Af Amer 62 Est GFR (MDRD) Non-Af 51 L BUN/Creatinine Ratio 15.2 Glucose 139 H Calcium 9.7 Total Bilirubin 0.40 AST 18 ALT 27 Alkaline Phosphatase 103 Total Protein 8.0 Albumin 4.2 Globulin 3.8 Albumin/Globulin Ratio 1.1 Urine Opiates Screen NEGATIVE Urine Methadone Screen NEGATIVE Ur Barbiturates Screen NEGATIVE Ur Phencyclidine Scrn NEGATIVE Ur Amphetamines Screen NEGATIVE MDMA (Ecstasy) Screen NEGATIVE U Benzodiazepines Scrn POSITIVE H Urine Cocaine Screen NEGATIVE U Cannabinoids Screen NEGATIVE Ur Drug Screen Comment Ethyl Alcohol < 3.0 Discharge Plan Triage Chief Complaint: Substance Abuse ED Provider: Talia Carter Dx/Rx/DC Orders Clinical Impression: Desire for detoxification, Polysubstance abuse Prescriptions: No Action valacyclovir [Valtrex] 1 gram tablet 1,000 mg PO DAILY zolpidem 10 mg tablet 10 mg PO QHS PRN (Reason: insomnia) sumatriptan 5 MG spray,non-aerosol 20 mg NS DAILY PRN PRN (Reason: migraines) bupropion HCl 150 mg tablet sustained-release 12 hr 150 mg PO BID Patient Comments: TAKE 1 TABLET ORALLY TWICE PER DAY FOR 90 DAYS multivitamin Tablet 1 tab PO DAILY caffeine [Awake] 200 mg tablet 200 mg PO DAILY PRN (Reason: fatigue) Primary Care Provider: Kush Briscoe Chi Referrals: Kush Briscoe Chi, MD [Primary Care Provider] - Disposition Disposition: Acute Care [facility]
--- NOTE | 2023-08-13 07:19 | NURSING ---
DR ARCHER FOR DR HADLEY
--- NOTE | 2023-08-13 07:40 | NURSING ---
MED SURG GIANNI POLYSUBSTANCE ABUSE
[2023-08-13 07:54] VITALS: RESP 16
[2023-08-13 10:15] VITALS: BP 128/78; PULSE 75; RESP 16; TEMP 36.7; O2SAT 99; BMI 23.3
[2023-08-13] MEDS: Phenobarbital 32.4 MG Tablet 64.7999999999999972 MG PO ×4 (11:41→23:12)
[2023-08-13] MEDS: Acyclovir 200 MG Capsule 400 MG PO ×2 (11:42→23:12)
[2023-08-13] MEDS: Thiamine Hydrochloride 100 MG Tablet PO (11:42)
[2023-08-13] MEDS: Folic Acid 1 MG Tablet PO (11:42)
--- NOTE | 2023-08-13 12:01 | HP.PCM.HOS_ITS ---
HPI - General General Date of Admission: 08/13/23 HPI Narrative NORIS QIU, is a 68 F who presents to the hospital requesting detox from opiates and Valium. She says that she gets her medications through a family member. She states that she is up to about 10 mg of Valium and 20 mg of oxycodone daily. She had gone through detox about 3 years prior and had been sober for about a year prior to starting use again. Her last use was around 330 this morning of Valium and she had used oxycodone the night before around 8 PM. 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 [facility] Medical History Alcohol use Back pain Depression Hemorrhoids History of IBS History of steroid therapy Hx of colonic polyps Insomnia, unspecified Migraine headache Non-smoker Post-menopausal Shortness of breath on exertion Wears glasses Home Medications bupropion HCl 150 mg tablet,12 hr sustained-release 150 mg PO BID 02/09/22 [History Last Taken Unknown] valacyclovir 1 gram tablet (Valtrex) 1,000 mg PO DAILY PRN ANTIVIRAL 04/28/23 [History Last Taken Unknown] zolpidem 10 mg tablet 10 mg PO QHS PRN insomnia 04/28/23 [History Last Taken Unknown] caffeine 200 mg tablet (Awake) 200 mg PO DAILY PRN FATIGUE 08/13/23 [History Last Taken Unknown] sumatriptan 20 mg/actuation nasal spray 20 mg intranasal Q2H PRN MIGRAINES 08/13/23 [History Last Taken Unknown] Allergy/AdvReac Type Severity Reaction Status Date / Time bisacodyl AdvReac Severe Vomiting Verified 04/28/23 09:50 [From Dulcolax (bisacodyl)] polyethylene glycol 3350 AdvReac Severe Vomiting Verified 04/28/23 09:50 [From Miralax] no significant family history Surgical History H/O breast augmentation History of appendectomy History of colonoscopy History of facelift History of mandibular surgery History of tonsillectomy Hx of rhinoplasty Social History household members: spouse current occupational status: employed Smoking Status: Never smoker ROS Constitutional Constitutional: Denies chills, fatigue, fever(s) or malaise Eyes Eyes: Denies blurry vision ENT HEENT: Denies headache(s) or nasal discharge Cardiovascular Cardiovascular: Denies chest pain, dyspnea on exertion or syncope Respiratory/Chest Respiratory/Chest: Denies cough, shortness of breath at rest or shortness of breath with exertion Gastrointestinal Gastrointestinal: Denies constipation, diarrhea, nausea or vomiting Genitourinary Genitourinary: Denies dysuria Neurologic Neurologic: Denies focal weakness, numbness or tremor(s) Psychiatric Psychiatric: Reports anxiety and depression Vital Signs Vital Signs Vital Signs: 08/13/23 05:55 08/13/23 07:54 08/13/23 10:15 Temperature 97.5 F L 98.1 F Temperature Source Oral Oral Pulse Rate 98 75 Respiratory Rate 18 16 16 Blood Pressure 137/73 H 128/78 H Blood Pressure Mean 94 94 Blood Pressure Source Monitor Blood Pressure Position Semi-Fowlers Blood Pressure Location Right Arm Pulse Ox 97 99 Oxygen Delivery Method Room Air Room Air Weight Weight: 149 lb 7.574 oz Body Mass Index (BMI) 23.3 Physical Exam Narrative General: Alert, Oriented x3, Cooperative, No apparent distress HEENT: Atraumatic, PERRLA, EOMI, Normocephalic Oral: Moist Mucosa Neck: Supple, No JVD Lungs: Clear to auscultation, Normal air movement, No rhonchi, No wheeze, No rales Cardiovascular: Regular rate, Regular Rhythm, Normal S1, Normal S2, No murmurs Abdomen: Soft, Non Tender, Non-Distended, No Hepato-splenomegaly Extremities: No edema, Capillary Refill Less than 3 Seconds Skin: No rashes, No breakdown Musculoskeletal: No Tenderness to Palpation of Joints or Extremities Neurological: No focal neurological deficits, Motor Exam 5/5 strength throughout, Sensory exam intact to light touch and pain Psych/Mental Status: Normal affect Results Lab / Micro Data 08/13/23 06:10 08/13/23 06:10 Labs: Laboratory Results - last 24 hr 08/13/23 06:10: WBC 8.2, RBC 4.85, Hgb 14.6, Hct 46.5, MCV 95.9, MCH 30.1, MCHC 31.4 L, RDW Std Deviation 50.7 H, RDW Coeff of Moise 14.3, Plt Count 278, MPV 9.7, Immature Gran % (Auto) 0.900, Neut % (Auto) 57.0, Lymph % (Auto) 29.9, [place] % (Auto) 9.7, Eos % (Auto) 1.6, Baso % (Auto) 0.9, Absolute Neuts (auto) 4.7, Absolute Lymphs (auto) 2.46, Nucleated RBC % 0, Sodium 139, Potassium 3.5, Chloride 106, Carbon Dioxide 26.0, Anion Gap 7, BUN 17, Creatinine 1.12 H, Estim Creat Clear Calc 46.75, Est GFR (MDRD) Af Amer 62, Est GFR (MDRD) Non-Af 51 L, BUN/Creatinine Ratio 15.2, Glucose 139 H, Calcium 9.7, Total Bilirubin 0.40, AST 18, ALT 27, Alkaline Phosphatase 103, Total Protein 8.0, Albumin 4.2, Globulin 3.8, Albumin/Globulin Ratio 1.1, Ethyl Alcohol < 3.0 08/13/23 06:20: Urine Opiates Screen NEGATIVE, Urine Methadone Screen NEGATIVE, Ur Barbiturates Screen NEGATIVE, Ur Phencyclidine Scrn NEGATIVE, Ur Amphetamines Screen NEGATIVE, MDMA (Ecstasy) Screen NEGATIVE, U Benzodiazepines Scrn POSITIVE H, Urine Cocaine Screen NEGATIVE, U Cannabinoids Screen NEGATIVE, Ur Drug Screen Comment Assessment & Plan Assessment/Plan (1) Polysubstance abuse: (2) Opiate withdrawal: (3) Desire for detoxification: PLAN: Plan 1. Opiate and benzo withdrawal/anxiety/depression ? She does not take Wellbutrin because she does not like the side effects ? Continue with the opiate and benzo withdrawal protocol ? Will have her follow-up with 180 to determine discharge planning 2. Migraines ? Can order a triptan if necessary DVT: Ambulation 65 minutes was spent on direct patient care, including documentation as well as chart review and collaboration with colleagues Charges/Coding Visit Charges Inpatient E&M: 06689 Init Hosp L2
[2023-08-13 14:15] VITALS: BP 117/73; PULSE 83; RESP 16; TEMP 36.4; O2SAT 98
--- NOTE | 2023-08-13 15:48 | CHAPLAIN ---
Type of Pastoral Visit _x__ Initial Visit ___ Follow-up Visit ___ On-call Visit ___ General Patient Visit ___ Spiritual Assessment ___ Family Conference ___ Bereavement ___ Rapid Response ___ Code Blue ___ Other (describe below) Pastoral Care Referral From _x__ Patient ___ Family ___ Nurse ___ Physician ___ Irrigation Installation Specialist ___ Distance Learning Unit Leader ___ Other (describe below) Sacrament/Intervention _x__ Active listening ___ Anointing ___ Yazidism ___ Bereavement ___ Communion _x__ Laurel exploration ___ _x__ Life review _x__ Prayer ___ Reconciliation ___ Sacrament of Sick _x__ Supportive presence ___ Wedding ___ Other (describe below) Pastoral Comments patient is waiting for a room to be admitted for the RAMP program; pt is welcoming and states this is my second time at this but I will do what they want me to do now after I leave ; pt expresses her load of many responsibilities, needs of the family, over commitment to activities, and aging; pt feels sense of shame but is going to be more open about it this time ; affirming patient's desire for better health and coping, and acknowledgement of changes that she wants to make; pt is asking for prayer support and help
[2023-08-13 16:34] VITALS: BP 130/87; PULSE 75; RESP 18; TEMP 36.4; O2SAT 94
[2023-08-13 20:25] VITALS: BP 112/55; PULSE 73; RESP 14; TEMP 36.6; O2SAT 96
[2023-08-13] MEDS: traZODone 100 MG Tablet PO (20:28)
[2023-08-13] MEDS: Acetaminophen 325 MG Tablet 650 MG PO (20:28)
[2023-08-14 03:23] VITALS: BP 105/72; PULSE 90; RESP 14; TEMP 36.6; O2SAT 96
[2023-08-14] MEDS: Phenobarbital 32.4 MG Tablet 64.7999999999999972 MG PO ×6 (03:26→23:53)
--- NOTE | 2023-08-14 08:14 | ADDICTION ---
clinician met with patient this morning to discuss hx and current level of sx's. client was open and discussed emotions and life events that she believes led to abuse of opiates and valium. client reported a willingness to enter into IOP tx groups; [facility] 2.1 LOC. clinician will continue to collaborate with client on discharge planning.
[2023-08-14 08:35] VITALS: BP 112/73; PULSE 76; RESP 18; TEMP 36.7; O2SAT 98
[2023-08-14] MEDS: Thiamine Hydrochloride 100 MG Tablet PO (08:40)
[2023-08-14] MEDS: Folic Acid 1 MG Tablet PO (08:40)
[2023-08-14] MEDS: Acyclovir 200 MG Capsule 400 MG PO ×2 (08:40→19:58)
--- NOTE | 2023-08-14 12:10 | PCM.PN.HOSP ---
Subjective Subjective Doing well, no issues overnight, Cina score of 0, CIWA B score of 2 Objective Data Objective Data Vital Signs: Vital Signs Temp Pulse Resp BP Pulse Ox O2 Del Method 98.1 F 76 18 112/73 98 Room Air 08/14/23 08:35 08/14/23 08:35 08/14/23 08:35 08/14/23 08:35 08/14/23 08:35 08/14/23 08:35 Oxygen Delivery Method Room Air Weight: 149 lb 7.574 oz Body Mass Index (BMI) 23.3 Intake & Output: Intake and Output for Last 24 Hours 08/13/23 08/14/23 08/15/23 03:59 03:59 03:59 Intake Total 300 / 300 800 / 800 Balance 300 / 300 800 / 800 Lab / Micro Data 08/13/23 06:10 08/13/23 06:10 Physical Exam Narrative General: Alert, Oriented x3, Cooperative, No apparent distress HEENT: Atraumatic, PERRLA, EOMI, Normocephalic Oral: Moist Mucosa Neck: Supple, No JVD Lungs: Clear to auscultation, Normal air movement, No rhonchi, No wheeze, No rales Cardiovascular: Regular rate, Regular Rhythm, Normal S1, Normal S2, No murmurs Abdomen: Soft, Non Tender, Non-Distended, No Hepato-splenomegaly Extremities: No edema, Capillary Refill Less than 3 Seconds Skin: No rashes, No breakdown Musculoskeletal: No Tenderness to Palpation of Joints or Extremities Neurological: No focal neurological deficits, Motor Exam 5/5 strength throughout, Sensory exam intact to light touch and pain Psych/Mental Status: Normal affect Assessment & Plan Assessment/Plan (1) Polysubstance abuse: (2) Opiate withdrawal: (3) Desire for detoxification: PLAN: Plan 1. Opiate and benzo withdrawal/anxiety/depression ? She does not take Wellbutrin because she does not like the side effects ? Continue with the opiate and benzo withdrawal protocol ? Will have her follow-up with 180 to determine discharge planning 2. Migraines ? Can order a triptan if necessary DVT: Ambulation Charges/Coding Visit Charges Inpatient E&M: 46225 Subs Hosp L2
[2023-08-14 14:54] VITALS: BP 98/56; PULSE 87; RESP 18; TEMP 37.1; O2SAT 96
[2023-08-14 19:55] VITALS: BP 127/71; PULSE 83; RESP 14; TEMP 36.6; O2SAT 100
[2023-08-14] MEDS: Acetaminophen 325 MG Tablet 650 MG PO (19:57)
[2023-08-14] MEDS: Ondansetron 8 MG Tablet PO (19:57)
[2023-08-14 23:49] VITALS: BP 106/61; PULSE 84; RESP 14; TEMP 36.6; O2SAT 100
[2023-08-14] MEDS: traZODone 100 MG Tablet PO (23:53)
[2023-08-15] MEDS: Phenobarbital 32.4 MG Tablet 64.7999999999999972 MG PO ×3 (02:54→10:04)
[2023-08-15 06:05] VITALS: BP 96/62; PULSE 84; RESP 16; TEMP 36.6; O2SAT 99
[2023-08-15 08:20] VITALS: BP 97/45; PULSE 84; RESP 18; TEMP 36.6; O2SAT 98
[2023-08-15] MEDS: Acetaminophen 325 MG Tablet 650 MG PO (08:26)
[2023-08-15] MEDS: Acyclovir 200 MG Capsule 400 MG PO (08:27)
[2023-08-15] MEDS: Folic Acid 1 MG Tablet PO (08:27)
[2023-08-15] MEDS: Thiamine Hydrochloride 100 MG Tablet PO (08:27)
[2023-08-15] MEDS: Ondansetron 8 MG Tablet PO (10:04)
--- NOTE | 2023-08-15 10:25 | DCINST_ITS ---
Discharge Instructions Diet Discharge Diet: No restrictions Activity Discharge Activity: Return to Normal Activity Dressing / Incision Call your doctor if you observe: Fever of 101 or Higher, Shortness of breath, Dizziness, Fainting spells, Swelling in the ankles, Chest pain and Increased palpitations (irregular heartbeat) Follow Up Care Test Results: Test results from this visit will be discussed in further detail at your follow- up appointment, if applicable. Discharge Plan Admission Admit Date/Time: 08/13/23 07:22 Attending Provider: Josue Sanchez Primary Care Provider: Kush Briscoe Chi Discharge Orders/Prescriptions Prescriptions: Continued valacyclovir [Valtrex] 1 gram tablet 1,000 mg PO DAILY PRN (Reason: ANTIVIRAL ) zolpidem 10 mg tablet 10 mg PO QHS PRN (Reason: insomnia) caffeine [Awake] 200 mg tablet 200 mg PO DAILY PRN (Reason: FATIGUE ) sumatriptan 20 mg/actuation spray,non-aerosol 20 mg INTRANASAL Q2H PRN (Reason: MIGRAINES) Rx Instructions: INSTILL ONE SPRAY INTRANASALLY EVERY 2 HOURS NEEDED FOR MIGRAINE. Discontinued bupropion HCl 150 mg tablet sustained-release 12 hr 150 mg PO BID Patient Comments: TAKE 1 TABLET ORALLY TWICE PER DAY FOR 90 DAYS Referrals / Follow Up: Kush Briscoe Chi, MD [Primary Care Provider] - Within 1 Week Disposition Disposition (needs filled in before D/C Order can be placed): Home, Self Care
--- NOTE | 2023-08-15 10:37 | ADDICTION ---
clinician met with patient this morning to confirm discharge plan. client will attend [facility] at [facility] office beginning on 08/18/23. She has a scheduled appointment with her therapist, Slime Wynne Phd on 08/25/23 at 1:00 [facility]. client reported that her will pick her up upon discharge and transport her home.
--- NOTE | 2023-08-15 12:01 | PHA.DC.MR.R ---
Pharmacy [place] Med Reconciliation Pharmacy Service has performed discharge medication reconciliation for this patient. no new medications issued at time of discharge. medications reviewed are from previously reported home medications. The patient's discharge medication list was reviewed for discrepancies and discrepancies were resolved. Medications at Discharge Home Medications valacyclovir 1 gram tablet (Valtrex) 1,000 mg PO DAILY PRN ANTIVIRAL 04/28/23 zolpidem 10 mg tablet 10 mg PO QHS PRN insomnia 04/28/23 caffeine 200 mg tablet (Awake) 200 mg PO DAILY PRN FATIGUE 08/13/23 sumatriptan 20 mg/actuation nasal spray 20 mg intranasal Q2H PRN MIGRAINES 08/13/23
--- NOTE | 2023-08-15 12:52 | PCM.DC.SUM ---
Providers Date of Admission: 08/13/23 Primary Care Physician: Dr. Kush Briscoe MD Reason For Visit: OPIATE/BENZO DETOX Diagnosis Discharge Diagnosis (1) Polysubstance abuse: Status: Chronic Code(s): F19.10 - Other psychoactive substance abuse, uncomplicated (2) Opiate withdrawal: Status: Acute Code(s): F11.23 - Opioid dependence with withdrawal (3) Desire for detoxification: Status: Acute Medications at Discharge Home Medications valacyclovir 1 gram tablet (Valtrex) 1,000 mg PO DAILY PRN ANTIVIRAL 04/28/23 zolpidem 10 mg tablet 10 mg PO QHS PRN insomnia 04/28/23 caffeine 200 mg tablet (Awake) 200 mg PO DAILY PRN FATIGUE 08/13/23 sumatriptan 20 mg/actuation nasal spray 20 mg intranasal Q2H PRN MIGRAINES 08/13/23 Hospital Course Operations None Procedures None Summary of Care Provided Minutes Spent on Discharge: 34 Hospital Course: Per HPI: NORIS QIU, is a 68 F who presents to the hospital requesting detox from opiates and Valium. She says that she gets her medications through a family member. She states that she is up to about 10 mg of Valium and 20 mg of oxycodone daily. She had gone through detox about 3 years prior and had been sober for about a year prior to starting use again. Her last use was around 330 this morning of Valium and she had used oxycodone the night before around 8 PM. She does not give a clear history as to why she uses oxycodone and Valium, she does endorse some anxiety but she makes it sound like it just happened as a coping mechanism. Hospital Course: 1. Opiate and benzo withdrawal/anxiety/depression?68-year-old female presented to the hospital for detox for opiate and benzo use. She states that she does not have a prescription and she gets it from her [id number]. She has elected to voluntarily go into detox and did well, she did not need many of her as needed medications and I think part of her score for both the Valium and the opiate was due to a migraine issue which she has when she does not get caffeine. She met with 180 and plan for intensive outpatient therapy starting on Friday. I discussed with her the possibility of discharge today she expressed understanding of the risk benefits of going home and wants to go home today. She thinks that she will be able to manage without using opiates or Valium over the weekend. Physical Exam Narrative General: Alert, Oriented x3, Cooperative, No apparent distress HEENT: Atraumatic, PERRLA, EOMI, Normocephalic Oral: Moist Mucosa Neck: Supple, No JVD Lungs: Clear to auscultation, Normal air movement, No rhonchi, No wheeze, No rales Cardiovascular: Regular rate, Regular Rhythm, Normal S1, Normal S2, No murmurs Abdomen: Soft, Non Tender, Non-Distended, No Hepato-splenomegaly Extremities: No edema, Capillary Refill Less than 3 Seconds Skin: No rashes, No breakdown Musculoskeletal: No Tenderness to Palpation of Joints or Extremities Neurological: No focal neurological deficits, Motor Exam 5/5 strength throughout, Sensory exam intact to light touch and pain Psych/Mental Status: Normal affect Weight / BMI Weight Weight: 149 lb 7.574 oz Body Mass Index (BMI) 23.3 ABG / Lab / Microbiology Data 08/13/23 06:10 08/13/23 06:10 D/C Instructions Discharge Diet: No restrictions Call your doctor if you observe: Fever of 101 or Higher, Shortness of breath, Dizziness, Fainting spells, Swelling in the ankles, Chest pain and Increased palpitations (irregular heartbeat) Meaningful Use Info Meaningful Use Diagnoses (Choose all that apply): None applicable Discharge Plan Admission Admit Date/Time: 08/13/23 07:22 Attending Provider: Josue Sanchez Primary Care Provider: Kush Briscoe Chi Discharge Orders/Prescriptions Prescriptions: Continued valacyclovir [Valtrex] 1 gram tablet 1,000 mg PO DAILY PRN (Reason: ANTIVIRAL ) zolpidem 10 mg tablet 10 mg PO QHS PRN (Reason: insomnia) caffeine [Awake] 200 mg tablet 200 mg PO DAILY PRN (Reason: FATIGUE ) sumatriptan 20 mg/actuation spray,non-aerosol 20 mg INTRANASAL Q2H PRN (Reason: MIGRAINES) Rx Instructions: INSTILL ONE SPRAY INTRANASALLY EVERY 2 HOURS NEEDED FOR MIGRAINE. Discontinued bupropion HCl 150 mg tablet sustained-release 12 hr 150 mg PO BID Patient Comments: TAKE 1 TABLET ORALLY TWICE PER DAY FOR 90 DAYS Referrals / Follow Up: Kush Briscoe Chi, MD [Primary Care Provider] - Within 1 Week Disposition Disposition (needs filled in before D/C Order can be placed): Home, Self Care Charges/Coding Visit Charges Inpatient E&M: 11451 Disch Hosp >30min
== END 2023-08-15 13:31 | disposition home or self-care (01) | DRG 897 ==
LOC: ED 07:21 → MS3 10:13
PROVIDERS: Admitting Provider Family Medicine; Emergency Provider Emergency Medicine; PCP Family Medicine Geriatric Medicine; Visit Provider Family Medicine
DX: F11.23 Opioid dependence with withdrawal (principal); F13.10 Sedative, hypnotic or anxiolytic abuse, uncomplicated; F32.A Depression, unspecified; F41.9 Anxiety disorder, unspecified; G43.909 Migraine, unspecified, not intractable, without status migrainosus; Z79.899 Other long term (current) drug therapy
CPT/HCPCS: 80053; 80307; 80320; 85025; 99283; A4216; G0480

== ENCOUNTER → 2023-11-27 | Outpatient (CLI) | payer MEDICARE, OTHER, SELFPAY ==
--- NOTE | 2023-11-27 12:08 | US_ITS ---
STUDY: ULTRASOUND OF THE FEMALE PELVIS - COMPLETE REASON FOR EXAM: Female, 68 years old. PMB LMP: TECHNIQUE: Transabdominal and transvaginal TECHNICAL QUALITY: Adequate. COMPARISON: CT of the abdomen and pelvis February 09, 2022 FINDINGS: The uterus is anteverted and is in a midline position. The uterus measures 8.3 x 4.5 x 4.1 cm. Normal uterine cervix. The endometrium measures 3.4 mm in thickness, and is hyperechoic. There is no demonstrated endometrial mass. Myometrium is heterogeneous and there are multiple fibroids measuring 1.3 x 1.4 x 1.3 cm, 1.8 x 1.8 x 1.6 cm and a pedunculated fibroid measuring 2.3 x 2.2 x 1.3 cm. I.U.D. - The patient does not have an I.U.D. The right ovary is visualized. The right ovary measures 2.8 x 2.8 x 2.6 cm. There is a cyst measuring 2.4 x 2.2 x 2.2 cm. There is no visualized right adnexal mass or complex lesion. There is normal arterial and normal venous vascularity. The left ovary is visualized. The left ovary measures 2.1 x 2.3 x 1.2 cm. There is no left ovarian cyst or ovarian mass. There is no visualized left adnexal mass or complex lesion. There is normal arterial and normal venous vascularity. There is no fluid in the cul-de-sac. The pre void volume of the bladder was 724 ml. US/Pelvic w/ Transvaginal IMPRESSION: Heterogeneous appearing uterus with multiple fibroids Small right ovarian cyst measuring approximately 2.4 x 2.2 x 2.2 cm Electronically Signed: Anatoliy Huber MD at 18:55 EDT ,
--- NOTE | 2023-11-27 12:16 | BI_ITS ---
MAMMOGRAPHY - BILATERAL SCREENING REASON FOR EXAM: Female, 68 years old. Routine annual screening examination. PERTINENT HISTORY: Non-contributory. Bilateral breast implants. TECHNIQUE: Digital bilateral breast shira (3D mammographic acquisition) in the CC and MLO projections. 2-D mediolateral oblique (MLO) and craniocaudad (CC) views of both breasts were obtained. CAD: Full Field Digital Mammography with Computer Added Detection was performed. COMPARISON: Comparison is made with prior study April 02, 2021 and June 02, 2018. FINDINGS: Breast Composition: The breasts are heterogeneously dense, which may obscure small masses. There are no dominant masses or suspicious calcifications. Stable appearance of the bilateral breast implants. No other significant abnormalities are identified. There has been no significant change since the prior study. BI/SCRN MAMM (CAD)W/SHIRA BILAT IMPRESSION: Stable bilateral screening mammogram. Yearly follow-up mammogram recommended. (A) ASSESSMENT CATEGORY: BIRADS Category 2: Benign. A letter regarding these results will be sent to the patient by the facility within 30 days. Approximately 10% of breast cancers are not detected by mammography. A normal mammogram should not delay biopsy of a clinically suspicious abnormality. [id number] Electronically Signed: Jalen Keane MD at 13:10 EDT ,
== END | disposition home or self-care (01) ==
LOC: US 12:08
PROVIDERS: PCP Internal Medicine; Referring Provider Obstetrics & Gynecology; Visit Provider Obstetrics & Gynecology
DX: Z12.31 Encounter for screening mammogram for malignant neoplasm of breast (principal); N95.0 Postmenopausal bleeding
CPT/HCPCS: 76830; 76856; 77063; 77067

== ENCOUNTER → 2023-11-28 | Outpatient (CLI) | payer MEDICARE, OTHER, SELFPAY ==
--- NOTE | 2023-11-28 11:00 | EMB_PTH ---
PATIENT: NORIS QIU LOC: [facility] U#:[id number] AGE/SX: 68/F ROOM: RE11/28/[address]: Dr. Deepali Weaver MD : 1955 BED: DIS: 11/28/2023 SPEC #: [id number] RECD: 11/28/23 16:44 STATUS: MI TORRES #: [id number] AGUSTIN: 11/28/23 11:[address]: Deepali Weaver DEPT: SURGICAL PATHOLOGY RECD BY: Juan Angel ENTERED: 12/01/23 09:05 SP TYPE: ENDOM BX/C SOLOMON DR: Dr. Corin Spencer DO Tissues: Endometrium, NOS Procedures: Surgery Specimen Level IV HEADER OPERATION: Endometrial biopsy PRE-OP DIAGNOSIS: Post-menopausal bleeding TISSUE SUBMITTED: Endometrial lining MICROSCOPIC DIAGNOSIS Endometrium, biopsy: Scant strips of benign superficial inactive endometrium with focal cystic change. AM/mr 12/02/2023 MICROSCOPIC DESCRIPTION Slides are reviewed. GROSS DESCRIPTION Received is one container labeled with the patient's name and not further designated. The specimen consists of multiple irregular fragments of light to dark frost soft tissue measuring in aggregate 2.2 x 0.6 x <0.1cm. The specimen is totally submitted in one cassette. AM/mr 12/01/2023 TC:5 CPT:23006
== END | disposition home or self-care (01) ==
LOC: LABSPEC 16:52
PROVIDERS: PCP Internal Medicine; Referring Provider Obstetrics & Gynecology; Visit Provider Obstetrics & Gynecology
DX: N95.0 Postmenopausal bleeding (principal)
CPT/HCPCS: 88305

== ENCOUNTER → 2023-12-23 | Outpatient (CLI) | payer MEDICARE, OTHER, SELFPAY ==
--- NOTE | 2023-12-23 13:03 | US_ITS ---
STUDY: THYROID ULTRASOUND REASON FOR EXAM: Female, 68 years old. thyroid nodule TECHNIQUE: Ultrasound evaluation of the thyroid was performed with real-time and static bhandari-scale imaging. COMPARISON: None. FINDINGS: RIGHT LOBE: The right lobe of the thyroid gland measures 4.3 x 1.9 cm. There is a heterogeneous echotexture. There is a nodule. This is heterogeneous and irregular. It measures 3 x 1.4 cm. The lesion is solid with irregular margins and sintia nodular doppler flow. LEFT LOBE: The left lobe of the thyroid gland measures 3.8 x 1.3 cm. There is a homogeneous echotexture. There are no demonstrated solid, cystic or complex lesions. ISTHMUS: The isthmus measures 2 mm. US/Thyroid IMPRESSION: There are RIGHT nodules. TR3: Mildly Suspicious: FNA if ? 2.5 cm; Follow if ? 1.5 cm at 1, 3, and 5 y This nodule is solid or almost completely solid, hyperechoic or isoechoic, [id number], smoothly marginated and contains no echogenic foci. TI-RADS points: 3. TI-RADS category: TR3. This nodule is mildly suspicious. Recommend FNA evaluation. Electronically Signed: Jd Jennings MD at 21:35 EDT ,
== END | disposition home or self-care (01) ==
LOC: US 13:01
PROVIDERS: PCP Internal Medicine; Referring Provider Internal Medicine; Visit Provider Internal Medicine
DX: E04.1 Nontoxic single thyroid nodule (principal)
CPT/HCPCS: 76536

== ENCOUNTER 2024-03-02 07:23 | Day surgery (SDC) | payer MEDICARE, OTHER, SELFPAY ==
[2024-02-26 11:05] LABS: Hematocrit 36.6 % (37-47); Hemoglobin 11.5 g/dL (12.0-15.0); Mean Corp Hgb Conc 31.4 g/dL (32-36); Mean Corpuscular Hgb 29.9 pg (27.0-32.0); Mean Corpuscular Volume 95.3 fL (81-99); Mean Platelet Vol. 10.5 fl (6.2-12.0); Platelet Count 151 K/mm3 (150-450); RBC Distribution Width CV 13.8 % (11.6-14.6); RBC Distribution Width SD 48.3 fl (35.1-43.9); Red Blood Count 3.84 M/mm3 (4.2-5.4)
[2024-02-26 11:31] LABS: Anion Gap 4 (5-15); BUN 18 mg/dL (7-18); BUN/Creat Ratio 22.2 RATIO (10-20); Calcium,Total 8.4 mg/dL (8.5-10.1); Chloride 105 mmol/L (98-107); Creatinine, Serum 0.81 mg/dL (0.55-1.02); EST Glomerular Filtration Rate 75 mL/min (>60); Est Glom Filt Rate - Afr Amer 90 mL/min (>60); Glucose 84 mg/dL (74-106); Potassium 4.3 mmol/L (3.5-5.1); Sodium Level 138 mmol/L (136-145)
[2024-02-26 11:31] LABS: Magnesium 2.1 mg/dL (1.6-2.6)
[2024-03-02] VITALS (12 sets, daily range): BP systolic 94–109; BP diastolic 54–62; PULSE 54–76; RESP 10–18; TEMP 36.1–36.8; O2SAT 92–100; BMI 21.6
--- NOTE | 2024-03-02 | HYST_PTH ---
PATIENT: NORIS QIU LOC: [facility] U#:[id number] AGE/SX: 69/F ROOM: RE03/02/[address]: Dr. Deepali Weaver MD : 1955 BED: DIS: 03/02/2024 SPEC #: [id number] RECD: 03/02/24 13:15 STATUS: MI REDonte #: [id number] AGUSTIN: 03/02/24 00:[address]: Deepali Weaver DEPT: SURGICAL PATHOLOGY RECD BY: James Hunt ENTERED: 03/02/24 13:15 SP TYPE: HYSTERECT OTHR DR: MD Dr. Corin Myles DO Tissues: Uterus, NOS Procedures: Surgery Specimen Level V HEADER OPERATION: Hysterectomy, LAVH, bilateral salping-oopherectomy PRE-OP DIAGNOSIS: Postmenopausal bleeding TISSUE SUBMITTED: Cervix, uterus, and bilateral fallopian tubes, bilateral ovaries MICROSCOPIC DIAGNOSIS Uterus, hysterectomy: Cervix - Nabothian cysts and mild chronic inflammation Endometrium - Weakly proliferative endometrium with focal cystic change Myometrium - Leiomyomas and adenomyosis. Right fallopian tube- No pathologic change Right ovary- Serous cyst adenofibroma Left fallopian tube- Benign paratubal cyst Left ovary- Corpra jose AM/mr 03/03/2024 COMMENT Case has been reviewed in consultation with Dr. Gaytan who concurs with the above diagnosis. IDC:SJ MICROSCOPIC DESCRIPTION Slides are reviewed. GROSS DESCRIPTION Received in fixative is one container labeled with the patient's name and designated uterus, cervix, bilateral fallopian tubes, and bilateral ovaries. The specimen consists of a hysterectomy specimen consisting of uterus with cervix and attached bilateral fallopian tubes and ovaries. The uterus with cervix weighs 80 gm and measures 9.0 x 6.0 x 4.0 cm. The serosal surface is frost glistening. A few subserosal nodules are noted. The ectocervical mucosa is unremarkable. The external os is circular in contour. The endocervical canal measures 3.0 cm in length and the endocervical mucosa is frost glistening and unremarkable. The triangular endometrial cavity measures 5.0 cm in length and 2.5 cm in width. The endometrium is frost glistening without any mass lesions and measures 0.1 cm in thickness. Sections of the uterine wall reveals multiple intramural, submucosal and subserosal nodular masses. Sections of these mass reveal frost whorled cut surfaces without areas of hemorrhage, necrosis or cystic degeneration. The largest nodular mass is subserosal in location and measures 2.5cm in greatest dimension. Uterine wall measures up to 2.0cm in thickness. Right fallopian tube measures 7.0cm in length and 0.5cm in diameter. Fimbrial end is identified. No tubo-ovarian adhesions are noted. Soft to cystic right ovary measures 3.5 x 3.0 x 2.5cm and weighs 14.0gm. The outer surface is smooth with out any papillation and is inked black. Sections reveal a unilocular cyst occupying most of the ovary measuring 3.5cm in greatest dimension. Cyst wall is smooth without any papillation. Cyst wall measures up to 0.1cm in thickness. The left fallopian tube is similar in appearance to right and measures 7.0cm in length and 0.5cm in diameter. The left ovary measures 2.5 x 1.0 x 1.0cm. Sections reveal a cyst filled with clear fluid measuring 0.5cm in greatest dimension. [employer] sections are submitted in twelve cassettes as follows: 1 - anterior cervix, 2 - posterior cervix, 3 & 4 - anterior uterine wall, 5 & 6 - posterior uterine wall and intramural nodular masses, 7- largest subserosal nodular mass, 8- second largest nodular mass, 9- smaller nodular masses, 10- right fallopian tube and ovary, 11- more section of right ovary, 12- left fallopian tube and ovary. SJ: 03/02/2024 TC:1 CPT: 88411
--- NOTE | 2024-03-02 07:52 | PCM.PRE.AN2 ---
ASA Classification* ASA Classification ASA Classification: 2 Assessment & Plan Anesthesia* Anesthesia Assessment Anesthesia Assessment: Discussed sedation and/or anesthesia options, risks, benefits, and alternatives with patient/parents/legal guardian/POA. Questions invited. The patient/parents/legal guardian/POA seems to understand and agrees to proceed with anesthesia plan. Reviewed the physical assessment, medical history, allergy history and patient home medications list prior to surgery/procedure/anesthetic and documented any changes. Performed airway and anesthesia risk assessments. Anesthesia Type Anesthesia Type: General (see written pre anesthesia record for full assessment) Anesthesia Focused Assessment* Airway Assessment Mouth opens: >3 cm Mallampati Score: II Focused Labs Anesthesia Preop lab: CBC WBC 4.0 K/mm3 (4.4-11.0) L 02/26/24 10:20 RBC 3.84 M/mm3 (4.2-5.4) L 02/26/24 10:20 Hgb 11.5 g/dL (12.0-15.0) L 02/26/24 10:20 Hct 36.6 % (37-47) L 02/26/24 10:20 Plt Count 151 K/mm3 (150-450) 02/26/24 10:20 CHEMISTRY Potassium 4.3 mmol/L (3.5-5.1) 02/26/24 10:20 Sodium 138 mmol/L (136-145) 02/26/24 10:20 Magnesium 2.1 mg/dL (1.6-2.6) 02/26/24 10:19 BUN 18 mg/dL (7-18) 02/26/24 10:20 Creatinine 0.81 mg/dL (0.55-1.02) 02/26/24 10:20 Glucose 84 mg/dL (74-106) 02/26/24 10:20 TSH 3.69 uIU/mL (0.358-3.74) 03/31/23 10:01 COAG Pre-Assessment Diagnosis/Proposed Procedure Planned Operative Procedure(s): (B) Hysterectomy,LAVH, Bilateral Salpingo-oophorectomy Anesthesia History 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 When Was Last Pacemaker Check QUESTION #4 FULL TEXT: You/Your Family Experience fever (hyperthermia) with Anesthesia Last Oral Intake Last Oral intake: Last Oral Intake NPO since Meds taken in AM with sips of water? Meds patient instructed to take am of surgery PONV PONV - veterinary technician instructor: PONV - veterinary technician instructor Female Yes 02/18/24 08:55 HX of Motion Sickness Yes 02/18/24 08:55 HX of N/V After Surgery No 02/18/24 08:55 Non-Smoker Yes 02/18/24 08:55 Duration of Surgery greater Yes 02/18/24 08:55 than 60 minutes Number of Risk Factors 4 02/18/24 08:55 PONV Score Severe Risk 02/18/24 08:55 Height & Weight Height & Weight: Anesthesia: Height & Weight Height 5 ft 7 in 02/16/24 11:33 Respiratory Assessment Respiratory Assessment - veterinary technician instructor: Respiratory Tract Infection Hx - veterinary technician instructor Hx Respiratory Tract Infection No 02/18/24 08:55 STOP Sleep Apnea STOP Sleep Apnea - veterinary technician instructor: STOP Sleep Apnea - veterinary technician instructor Hx Hypertension No 02/18/24 08:55 Hx Sleep Apnea No 02/18/24 08:55 CPAP BIPAP Do you snore loudly (louder Yes 02/18/24 08:55 than talking or can be heard Do you often feel tired/ No 02/18/24 08:55 fatigued/ sleepy during daytime? Has anyone observed you stop No 02/18/24 08:55 breathing during sleep? STOP Results Negative 02/18/24 08:55 QUESTION #5 FULL TEXT : Do you snore loudly (louder than talking or can be heard through closed doors)? Tobacco Use History Tobacco Use History - veterinary technician instructor: Tobacco Use History - veterinary technician instructor Tobacco Use Smoking Status Never smoker 02/18/24 08:55 Hx Tobacco Use No 02/18/24 08:55 Years Smoking Packs Smoked per Day Smoking Cessation Date was within the last 15 years Hx Smoking Cessation Date Hx Smoking Cessation Counseling Hematologic Medial History Hematologic Hx - veterinary technician instructor: Hematologic Medical Hx - manager ambulatory Hx of Blood Transfusion No 02/18/24 08:55 Hx of Transfusion in last 3 No 02/18/24 08:55 Months Date of Last Transfusion (if within last 3 months) Ever experience any problems No 02/18/24 08:55 with transfusion(s)? Specify any problems Hx of Preganancy in last 3 No 02/18/24 08:55 Months Nurse Filling Out Transfusion VCHRISTIN 02/18/24 08:55 & Questions: Date: 02/18/24 02/18/24 08:55 Time: 08:56 02/18/24 08:55 Patient unable to answer at this time (ie. confused, unrespo /Reproduction History /Reproductive History - veterinary technician instructor: /Reproductive Hx- veterinary technician instructor Hx Now No 02/18/24 08:55 Gestational Age (in weeks): EDC: Hx Hx Para Hx Section SAB No 02/18/24 08:55 Active Medications Active Medications: Current Medications Generic Name Dose Route Start Last Admin Trade Name Freq PRN Reason Stop Dose Admin Acetaminophen 1,000 mg 03/02/24 09:15 Acetaminophen 500 Mg Tablet PO 03/02/24 09:16 PREOP ONE Celecoxib 400 mg 03/02/24 09:15 Celecoxib 200 Mg Capsule PO 03/02/24 09:16 X1 ONE Dexamethasone Sodium Phosphate 8 mg 03/02/24 09:15 Dexamethasone 4 Mg/Ml Vial IV 03/02/24 09:16 X1 ONE Enoxaparin Sodium 40 mg 03/02/24 09:15 Enoxaparin 40 Mg/0.4 Ml Syringe SC 03/02/24 09:16 X1 ONE Gabapentin 600 mg 03/02/24 09:15 Gabapentin 600 Mg Tablet PO 03/02/24 09:16 PREOP ONE Lactated Ringer's 1,000 mls @ 40 mls/hr 03/02/24 09:15 IV .Q25H FRANCO Cefazolin Sodium 2 gm/ Sodium 110 mls @ 150 mls/hr 03/02/24 09:15 Chloride IV 03/02/24 09:58 PREOP ONE Magnesium Sulfate 1 gm/ 102 mls @ 408 mls/hr 03/02/24 09:15 Dextrose IV 03/02/24 09:29 X1 ONE Insulin Human Lispro 0 unit 03/02/24 09:15 Insulin Lispro 100 Unit/Ml Insuln.Pen SC 03/02/24 18:00 Q4H PRN PRN BG >/= 180, SEE PROTOCOL Protocol Ondansetron HCl 4 mg 03/02/24 09:15 Ondansetron 4 Mg/2 Ml Vial IV 03/02/24 09:16 X1 ONE Phenazopyridine HCl 190 mg 03/02/24 09:15 Phenazopyridine 95 Mg Tablet PO 03/02/24 09:16 X1 ONE Scopolamine HBr 1 patch 03/02/24 09:15 Scopolamine 1mg/72hr Patch TD 03/02/24 09:16 X1 ONE PFSH Medical History Arthritis High cholesterol History of echocardiogram Narcotic abuse in remission Hx of colonic polyps Wears glasses Post-menopausal Alcohol use Back pain Migraine headache History of IBS Non-smoker Shortness of breath on exertion Hemorrhoids Insomnia, unspecified Depression Polysubstance abuse Desire for detoxification Home Medications ?Medication ?Instructions ?Recorded ?Last Taken ?Type valacyclovir 1 gram tablet 1,000 mg PO DAILY PRN ANTIVIRAL 04/28/23 Unknown History (Valtrex) sumatriptan 20 mg/actuation nasal 20 mg intranasal Q2H PRN MIGRAINES 08/13/23 Unknown History spray lactobacillus combination no.4 3 3,000 mmu cells PO DAILY 11/18/23 Unknown History billion cell capsule (Probiotic) estradiol 0.01% (0.1 mg/gram) See Rx Instructions vaginal 11/28/23 Unknown Rx vaginal cream (Estrace) .COMPLEX #42.5 grams sertraline 50 mg tablet (Zoloft) 100 mg PO DAILY 02/16/24 Unknown History coenzyme Q10 100 mg capsule (Co 100 mg PO DAILY 02/18/24 Unknown History Q-10) iodine (kelp) 1 tab PO DAILY 02/18/24 Unknown History levomefolate 15 mg-algal oil 1 cap PO DAILY 02/18/24 Unknown History 90.314 mg capsule (L-Methylfolate Forte) loratadine 10 mg tablet (Claritin) 10 mg PO DAILY 02/18/24 Unknown History magnesium 250 mg tablet 250 mg PO DAILY 02/18/24 Unknown History trazodone 50 mg tablet 50 mg PO QHS 02/18/24 Unknown History zolpidem 5 mg tablet 5 mg PO QHS 02/18/24 Unknown History Allergy/AdvReac Type Severity Reaction Status Date / Time No Known Allergies Allergy Verified 03/02/24 07:38 Family History Father Asthma Hypertension Grandfather CVA (cerebral vascular accident) Surgical History History of mandibular surgery Hx of rhinoplasty History of colonoscopy H/O breast augmentation History of facelift History of appendectomy History of tonsillectomy Social History adopted: No household members: spouse number of children: 2 current occupational status: employed 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
[2024-03-02] MEDS: Lactated Ringers 1,000 ML 40 ML IV (08:09)
[2024-03-02] MEDS: Scopolamine 1mg/72hr Patch 1 PATCH TD (08:10)
[2024-03-02] MEDS: Celecoxib 200 MG Capsule 400 MG PO (08:10)
[2024-03-02] MEDS: Acetaminophen 500 MG Tablet 1000 MG PO ×2 (08:10→14:02)
[2024-03-02] MEDS: Gabapentin 600 MG Tablet PO (08:10)
[2024-03-02] MEDS: dexAMETHasone 4 MG/ML Vial 8 MG IV (08:11)
[2024-03-02] MEDS: Enoxaparin 40 MG/0.4 ML Syringe SC (08:11)
[2024-03-02 08:16] LABS: Bedside Glucose 81 mg/dL (74-106)
[2024-03-02] MEDS: Magnesium 1 GM over 15 mins IV (08:17)
[2024-03-02] MEDS: Phenazopyridine 95 MG Tablet 190 MG PO (08:18)
--- NOTE | 2024-03-02 09:10 | PCM.HP.BLA ---
History and Physical Intake Vital Signs 11/27/2410:12 02/15/2411:24 02/15/2411:33 Height 5 ft 7 in 5 ft 7 in 5 ft 7 in Weight: 137 lb BMI 21.4 BP 101/61 Intake Visit Reasons: [facility] Child Attendant Required: No Is patient in pain?: No Allergies No Known Allergies Allergy (Verified 02/18/24 08:41) Medications ?Medication ?Instructions ?Recorded ?Confirmed ?Type valacyclovir 1 gram tablet 1,000 mg PO DAILY PRN ANTIVIRAL 04/28/23 02/18/24 History (Valtrex) sumatriptan 20 mg/actuation nasal 20 mg intranasal Q2H PRN MIGRAINES 08/13/23 02/18/24 History spray lactobacillus combination no.4 3 3,000 mmu cells PO DAILY 11/18/23 02/18/24 History billion cell capsule (Probiotic) estradiol 0.01% (0.1 mg/gram) See Rx Instructions vaginal 11/28/23 02/18/24 Rx vaginal cream (Estrace) .COMPLEX #42.5 grams sertraline 50 mg tablet (Zoloft) 100 mg PO DAILY 02/16/24 02/18/24 History coenzyme Q10 100 mg capsule (Co 100 mg PO DAILY 02/18/24 02/18/24 History Q-10) iodine (kelp) 1 tab PO DAILY 02/18/24 02/18/24 History levomefolate 15 mg-algal oil 1 cap PO DAILY 02/18/24 02/18/24 History 90.314 mg capsule (L-Methylfolate Forte) loratadine 10 mg tablet (Claritin) 10 mg PO DAILY 02/18/24 02/18/24 History magnesium 250 mg tablet 250 mg PO DAILY 02/18/24 02/18/24 History trazodone 50 mg tablet 50 mg PO QHS 02/18/24 02/18/24 History zolpidem 5 mg tablet 5 mg PO QHS 02/18/24 02/18/24 History Is last menstrual period known: No Post menopausal: No Patient : No : No PFSH Medical History (Updated 02/18/24 @ 18:[address] Deepali Weaver MD) Arthritis High cholesterol History of echocardiogram Narcotic abuse in remission Hx of colonic polyps Wears glasses Post-menopausal Alcohol use Back pain Migraine headache History of IBS Non-smoker Shortness of breath on exertion Hemorrhoids Insomnia, unspecified Depression Polysubstance abuse Desire for detoxification Surgical History History of mandibular surgery Hx of rhinoplasty History of colonoscopy H/O breast augmentation History of facelift History of appendectomy History of tonsillectomy Family History Father Asthma HypertensionGrandfather CVA (cerebral vascular accident) Social History adopted: No household members: spouse number of children: 2 current occupational status: employed 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 she has had postmenopausal bleeding, had a normal emb. ultrasound shows multiple fibroids. 8.3 x 4.5 x 4.1 cm. Normal uterine cervix. The endometrium measures 3.4 mm in thickness, and is hyperechoic. There is no demonstrated endometrial mass. Myometrium is heterogeneous and there are multiple fibroids measuring 1.3 x 1.4 x 1.3 cm, 1.8 x 1.8 x 1.6 cm and a pedunculated fibroid measuring 2.3 x 2.2 x 1.3 cm Female Reproductive History Questions: metorrhagia: No, sexually active: Yes, dyspareunia: Yes (deep dyspareunia) and PCB: Yes Menopausal Symptoms: No hot flashes, No night sweats, No weight change, No mood changes, No difficulty concentrating, No sleep problems and No change in libido History 5 Elective abortions 1 Hx Para 2 Spontaneous abortions 2 Hx # Term Pregnancies Ectopic pregnancies Hx # Pregnancies Multiple births # of living children 2 Past Pregnancies Del. Date Name GA/Weeks Outcome Route Bth Weight Infant Gen Labor Lgth Anesthesia Del Locatn Provider FOB Unknown Duy Unknown Madeleine ROS Const Constitutional: Denies fatigue, fever(s), headache(s), increased appetite, poor appetite, night sweats, weight gain or weight loss Cardio Card: Denies chest pain Resp Resp: Denies cough or dyspnea GI GI: Reports as per HPI; Denies abdominal pain, constipation, nausea or vomiting : Denies hot flashes or nipple discharge Skin Skin/Breast: Denies changing lesions, breast mass, breast pain, breast skin changes or nipple discharge Psych Psych: Denies change in libido or difficulty concentrating Exam Const General: cooperative, healthy appearing, comfortable, no acute distress, well developed and well groomed [facility] Head: normal to inspection and normocephalic Ears: hearing grossly normal bilaterally and external ears normal Nose: external nose normal Face and sinus: normal facial exam Neck Neck: normal visual inspection, full ROM and no lymphadenopathy Thyroid: thyroid normal Resp Effort & Inspection: normal respiratory effort GI Inspection: normal to inspection and non-distended Palpation: soft, no hepatosplenomegaly and no guarding General: bladder normal to palpation External Female Exam: normal external appearance, normal appearance of the urethra and no lesions Urethra: normal appearance of the urethra and normal palpation Speculum Exam - Vagina: normal appearance of the vagina and normal vaginal discharge Speculum Exam - Cervix: normal appearance of the cervix, no cervical discharge, no lesions and nontender Bimanual Exam- Vagina & Uterus: normal bimanual exam, uterine size normal, bladder normal to palpation, No tender, uterine mobility normal, consistency normal, non-tender and no cervical motion tenderness Bimanual Exam- Adnexa, other: normal adnexae, no masses and non-tender Skin General: no rashes or lesions noted Neuro General: patient alert, moves all extremities and no focal motor deficits Extrem General: normal to inspection and no pedal edema Psych Appearance: grossly normal Mental Status: mental status grossly normal Affect: normal affect Speech and Movement: speech and movement normal Attitude: cooperative Coding Level of Care Code No Charge Diagnoses Postmenopausal bleeding N95.0 Assessment and Plan Assessment and Plan (1) Postmenopausal bleeding: Status: Acute Comment: s/p nl emb. persistent likely secondary to fibroids, discussed options of exp management vs surigcal, patient wishes to proceed with definitive surgery. plan LAVHBSO. Plan After discussing the patient's diagnosis and treatment plan options, patient wishes to proceed with surgical management. I have discussed with the patient the risks, benefits, and alternatives of the procedure which include but are not limited to risks of anesthesia, bleeding, infection, possible damage to bowel, bladder, or surrounding vasculature which could lead to additional surgery to evaluate any complications. Patient agrees to procedure and wishes to proceed. ACOG/uptodate references given for additional information regarding procedure. UPDATE- I have seen the patient and performed any clinically relevant updates to the history and physical exam. Deepali Weaver MD
[2024-03-02] MEDS: Cefazolin 2 GM in 0.9% Normal Saline (100mL Bag) 100 ML IV (09:12)
[2024-03-02] MEDS: Ondansetron 4 MG/2 ML Vial IV (09:15)
[2024-03-02] MEDS: Bupivacaine 0.25% 30 ML Vial (10:57)
[2024-03-02] MEDS: Vasopressin 20 UNITS/ML Vial (10:58)
--- NOTE | 2024-03-02 11:23 | PCM.OPRPT ---
Problems Associated Problem List Diagnoses (1) Postmenopausal bleeding: (2) Uterine fibroid: Report of Operation Date of Procedure: 03/02/24 Pre-Operative Diagnosis: see A/P Post-Operative Diagnosis: same Surgery/Procedure Performed:: ZOE Description of Surgical Findings:: fibroid uterus, right simple appearing ovarian cyst Surgeon: Deepali Weaver callisthenics instructor: Derek Parada Type of Anesthesia: General Special Medications: hemoblast Specimen's removed: uterus, tubes, ovaries Drains: soto Estimated Blood Loss (mL): 150 Fluids Replaced: crystalloid Description of Procedure: Patient received preoperative antibiotics and SCDs were on preoperatively. Patient was taken back to the operating room and placed in the dorsal lithotomy position. General anesthesia was induced and patient was prepped and draped in normal sterile fashion. Uterine manipulator was placed inside the uterus and Soto catheter placed in the bladder. The umbilicus was grasped with towel clamps and an intraumbilical incision was made after injecting with quarter percent Marcaine and a Veress needle entered into the abdomen confirmed to be intra-abdominal with a low opening pressure. Abdomen was insufflated with CO2 gas and the Veress needle removed and the 5 mm trocar was placed under direct visualization without complication. Right and left lower quadrants were transilluminated and injected with quarter percent Marcaine and 5 mm ports placed under direct visualization. Pelvis was well visualized see operative findings for additional information. Bilateral fallopian tubes were identified and the IP ligament transected with the LigaSure device across to the mesosalpinx to the level of the utero-ovarian ligament. The broad ligament was opened up by transecting the round ligament bilaterally and skeletonizing the uterine vessels bilaterally and creating a bladder flap using the LigaSure device. The uterine arteries were transected bilaterally with good visualization of the bladder and the ureters were seen to be inferior lateral to the operative area. Attention was then paid to the vaginal portion of the procedure and the cervix was grasped with Ange clamps and circumferentially injected with dilute vasopressin. A circumferential incision was made and the vaginal mucosa was mobilized off posteriorly and the cul-de-sac entered into sharply and a longneck speculum placed. The anterior cul-de-sac was then identified and entered into sharply. The uterosacral ligaments were clamped cut and suture ligated with 0 Monocryl bilaterally followed by the cardinal ligaments which were clamped cut and suture ligated bilaterally with 0 Monocryl. The uterus serially descended and was removed without difficulty. Pelvic sidewall pedicles were checked and noted to have excellent hemostasis. The vaginal mucosa was reapproximated incorporating the posterior peritoneum. This was reapproximated using 0 Vicryl [id number] sutures. Excellent hemostasis was noted. The pelvis and cul-de-sac were well visualized and no significant active bleeding noted but some raw areas were seen on the peritoneum and therefore hemoblast was applied. Pressure was taken down and the areas visualized and noted of excellent hemostasis. All ports were removed under direct visualization without complication and the abdomen was desufflated of air. The instruments were removed from the abdomen and the vaginal sweep was negative. Port sites on the abdomen were closed with 4-0 Monocryl interrupted sutures and Steri's and windows were applied. She was awoken and taken recovery in stable condition. Grafts/Implants Used: none Procedure Start Time: 09:42 Procedure Stop Time: 11:23 Complications none Admit VTE Documentation VTE Present on Admission: No VTE Mechan Device Prophylaxis: SCD's VTE Pharm Prophylaxis ordered?: Yes Procedures Urinary/Genital [id number]: 39201 LAVH+BS/O <250gr Uterus
--- NOTE | 2024-03-02 11:27 | PCM.DC ---
Discharge Instructions Diet Discharge Diet: No restrictions Activity May resume sexual activity in: 6 weeks Weight Bearing Status: Full weight bearing Dressing / Incision Call your doctor if your incision/area has: Continuous Slow Oozing, Sudden Increased Bleeding, Increased Pain/ Swelling, Increased Redness and Foul Smelling Discharge Call your doctor if you observe: Fever of 101 or Higher, Using more than 1 pad per hour, Shortness of breath, Chest pain and Uncontrolled pain Suture Line Care: Avoid Pulling/Pushing and Avoid Pinching/Bending Remove Dressing in: 1 week (if present) Cleanse incision/area with: Soap & Water and Keep Dressing Clean & Dry Follow Up Care Please Follow Up With: Deepali Weaver MD When: Call to make an appointment with your doctor for a postop visit in 2 and 6 weeks. Test Results: Test results from this visit will be discussed in further detail at your follow-up appointment, if applicable. Discharge Plan Admission Attending Provider: Deepali Weaver Primary Care Provider: Corin Spencer Consulting Providers: Alex Nina Instructions Print Language: Ecuadorean Discharge Orders/Prescriptions Prescriptions: New oxycodone-acetaminophen [Percocet] 5-325 mg tablet 1 tab PO Q6H PRN (Reason: pain) 7 Days Qty: 10 0RF naproxen 500 mg tablet 500 mg PO BID PRN PRN (Reason: Pain) Qty: 30 1RF No Action valacyclovir [Valtrex] 1 gram tablet 1,000 mg PO DAILY PRN (Reason: ANTIVIRAL ) Probiotic 3 billion cell capsule 3,000 mmu cells PO DAILY Rx Instructions: administer with a meal sertraline [Zoloft] 50 mg tablet 100 mg PO DAILY estradiol [Estrace] 0.01 % (0.1 mg/gram) cream See Rx Instructions vaginal .COMPLEX Qty: 42.5 3RF Rx Instructions: use fingertip amount or 1-2g every night vaginally x 2 weeks, then 1-3x weekly for maintenance sumatriptan 20 mg/actuation spray,non-aerosol 20 mg INTRANASAL Q2H PRN (Reason: MIGRAINES) Rx Instructions: INSTILL ONE SPRAY INTRANASALLY EVERY 2 HOURS NEEDED FOR MIGRAINE. trazodone 50 mg tablet 50 mg PO QHS Patient Comments: TAKE 1 AND 1/2 TO 2 TABLETS BY MOUTH EVERY DAY AT BEDTIME zolpidem 5 mg tablet 5 mg PO QHS Patient Comments: TAKE 1/2 TO 1 TABLET BY MOUTH EVERY DAY AT BEDTIME NEEDED loratadine [Claritin] 10 mg tablet 10 mg PO DAILY iodine (kelp) Tablet 1 tab PO DAILY coenzyme Q10 [Co Q-10] 100 mg capsule 100 mg PO DAILY levomefolate-algal oil [L-Methylfolate Forte] 15-90.314 mg capsule 1 cap PO DAILY magnesium 250 mg tablet 250 mg PO DAILY Referrals / Follow Up: Fast,Corin, [Primary Care Provider] - Disposition Disposition (needs filled in before D/C Order can be placed): Home, Self Care
--- NOTE | 2024-03-02 11:49 | PCM.POST.ANE ---
Anesthesia: Postop Eval I Current Vital Signs Temperature: 97.5 F Pulse Rate: 74 Blood Pressure: 105/54 Respiratory Rate: 16 Pulse Ox: 100 Oxygen Delivery Method: Room Air Assessment Airway patent: Yes Spontaneous unlabored respirations: Yes Mental status: Asleep nausea: No Vomiting: No Anesthesia Complication: No Fluid Hydration Crystalloid volume administer (ml): 1,500 Total IV fluid infused: 1,500 Progress Note Anesthesia document: Postop Eval 1 completed: Yes
[2024-03-02] MEDS: Ketorolac 30 MG/ML Syringe IV (12:47)
[2024-03-02] MEDS: oxyCODONE 5 MG Tablet PO ×2 (13:33→14:07)
--- NOTE | 2024-03-02 14:44 | SUR.PHASEII ---
cbc sent to lab
[2024-03-02 15:04] LABS: Hematocrit 38.1 % (37-47); Hemoglobin 11.9 g/dL (12.0-15.0); Mean Corp Hgb Conc 31.2 g/dL (32-36); Mean Corpuscular Hgb 30.1 pg (27.0-32.0); Mean Corpuscular Volume 96.5 fL (81-99); Mean Platelet Vol. 10.5 fl (6.2-12.0); POSITIVE DIFFERENTIAL YES; Platelet Count 155 K/mm3 (150-450); RBC Distribution Width CV 13.5 % (11.6-14.6); RBC Distribution Width SD 48.4 fl (35.1-43.9); Red Blood Count 3.95 M/mm3 (4.2-5.4); White Blood Count 6.1 K/mm3 (4.4-11.0)
--- NOTE | 2024-03-02 16:40 | POSTOPAN2_ITS ---
Anesthesia Postop Eval I Sum Postop Eval Completion status Anesthesia document: Postop Eval 1 completed: Yes Anesthesia Postop Eval I Summary Anesthesia Postop Eval I Summary: Anesthesia Postop Eval I: Assessment Summary Airway patent Yes 03/02/24 11:50 ICE CREAM [email or web address] Spontaneous unlabored Yes 03/02/24 11:50 ICE CREAM [email or web address] respirations Mental status Asleep 03/02/24 11:50 ICE CREAM [email or web address] nausea No 03/02/24 11:50 ICE CREAM [email or web address] Vomiting No 03/02/24 11:50 ICE CREAM [email or web address] Anesthesia Postop Eval I: Fluid Summary Crystalloid volume administer 1,500 03/02/24 11:50 ICE CREAM [email or web address] (ml) Colloids volume administered ( ml) Blood Product volume administered (ml) Total IV fluid infused 1,500 03/02/24 11:50 ICE CREAM [email or web address] Anesthesia Postop Eval I: Summary Notes Anesthesia Complication No 03/02/24 11:50 ICE CREAM [email or web address] Anesthesia Complication Comment: Post-operative progress note Anesthesia: Postop Eval II Evaluation Mental status: Awake and Calm Pain Level: 2 nausea: No Vomiting: No Complications Anesthesia Complication: No
--- NOTE | 2024-03-02 16:40 | PCM.POSTANE2 ---
Anesthesia Postop Eval I Sum Postop Eval Completion status Anesthesia document: Postop Eval 1 completed: Yes Anesthesia Postop Eval I Summary Anesthesia Postop Eval I Summary: Anesthesia Postop Eval I: Assessment Summary Airway patent Yes 03/02/24 11:50 [employer] CONSULTANT.[email or web address] Spontaneous unlabored Yes 03/02/24 11:50 HUMAN RESOURCES CONSULTANT.DONATOOBBrenda respirations Mental status Asleep 03/02/24 11:50 HUMAN RESOURCES CONSULTANT.SKOBY nausea No 03/02/24 11:50 HUM[employer] RESOURCES CONSULTANT.SKOBY Vomiting No 03/02/24 11:50 HUMAN RESOURCES CONSULTANT.SKOBBrenda Anesthesia Postop Eval I: Fluid Summary Crystalloid volume administer 1,500 03/02/24 11:50 HUMAN RESOURCES CONSULTANT.SKOBY (ml) Colloids volume administered ( ml) Blood Product volume administered (ml) Total IV fluid infused 1,500 03/02/24 11:50 HUMAN RESOURCES CONSULTANT.DONATOOBBredna Anesthesia Postop Eval I: Summary Notes Anesthesia Complication No 03/02/24 11:50 HUMAN RESOURCES CONSULTANT.ANDREW Anesthesia Complication Comment: Post-operative progress note Anesthesia: Postop Eval II Evaluation Mental status: Awake and Calm Pain Level: 2 nausea: No Vomiting: No Complications Anesthesia Complication: No
== END 2024-03-02 15:55 | disposition home or self-care (01) ==
LOC: SDC 07:23 → AC 07:23
PROVIDERS: Anesthesiology; PCP Internal Medicine; Referring Provider Obstetrics & Gynecology; Visit Provider Obstetrics & Gynecology
PROC: 0UT9FZZ Resection of Uterus, Via Natural or Artificial Opening With Percutaneous Endoscopic Assistance (ICD-10-PCS; CPT 58550; principal; 2024-03-02 08:50)
DX: D27.0 Benign neoplasm of right ovary (principal); N95.0 Postmenopausal bleeding; E78.00 Pure hypercholesterolemia, unspecified; D25.9 Leiomyoma of uterus, unspecified; N88.8 Other specified noninflammatory disorders of cervix uteri; N72 Inflammatory disease of cervix uteri; N80.03 Adenomyosis of the uterus; Z79.899 Other long term (current) drug therapy
CPT/HCPCS: 58550; 00952; 36415; 80048; 82962; 83735; 85027; 88307; 93005; J7120; J2405; J3475

== ENCOUNTER → 2024-04-02 | Outpatient (CLI) | payer MEDICARE, OTHER, SELFPAY ==
--- NOTE | 2024-04-02 10:13 | MRI_ITS ---
MRI Abdomen w/ and w/out contrast 04/02/2024 10:49 AM COMPARISON: None CLINICAL HISTORY: previous CT showed mass b/w R T L hepatic lobes T cystic mass -- ATTN: liver and pancreas. previous NO C/O ANY PAIN OR ISSUES TECHNIQUE: Multiplanar T1 and T2 weighted, diffusion and dynamic post-gadolinium images were obtained through the abdomen before and after administration of 13 cc of IV Clariscan. FINDINGS: Liver: In the right hepatic lobe there is a 2.1 x 1.6 cm T1 hypointense/T2 hyperintense mass. It demonstrates progressive nodular discontinuous enhancement compatible with hepatic hemangioma. Gallbladder: Unremarkable Pancreas: Unremarkable Spleen: Unremarkable Adrenal Glands: Unremarkable Kidneys: Unremarkable GI Tract: Unremarkable Lymphadenopathy: Absent Ascites: Absent Bones: No suspicious lesions MRI/MRI Abd WITH and W/O Contrast IMPRESSION: 2.1 cm hepatic hemangioma. Electronically Signed: Edmund Flowers MD at 16:34 EDT ,
== END | disposition home or self-care (01) ==
LOC: MRI 10:09
PROVIDERS: PCP Internal Medicine; Referring Provider Internal Medicine; Visit Provider Internal Medicine
DX: Z01.812 Encounter for preprocedural laboratory examination (principal); R93.2 Abnormal findings on diagnostic imaging of liver and biliary tract
CPT/HCPCS: 74183; A9575; A4216

== ENCOUNTER → 2024-06-03 | Outpatient (CLI) | payer MEDICARE, OTHER, SELFPAY ==
--- NOTE | 2024-06-03 13:33 | CT_ITS ---
STUDY: CT CHEST WITHOUT CONTRAST REASON FOR EXAM: Female, 69 years old. ELEVATED HEMOGLOBIN RADIATION DOSAGE (If Supplied By Facility): CTDIvol = ( 12.19 ) mGy, DLP = ( 243.79 ) mGycm TECHNIQUE: Transaxial imaging was performed without the administration of intravenous contrast material. Cardiac over read examination. Individualized dose optimization techniques were used for this CT. COMPARISON: No relevant priors. FINDINGS: CHEST'' Bilateral breast implants The lungs are normal. There is no demonstrated pleural abnormality. No coronary calcification. Small pericardial effusion. Normal mediastinum. Normal hilar regions. Normal unenhanced pulmonary arteries. Normal aorta arch and descending thoracic aorta. Normal osseous structures. There is no demonstrated abnormality of the visualized upper abdomen. CT/Limited Chest CT Cardiac Only IMPRESSION: Small pericardial effusion. No evidence of coronary artery calcification. Electronically Signed: Jalen Keane MD at 14:46 EST ,
--- NOTE | 2024-06-18 08:15 | CA.SCORE ---
Calcium Scoring Date of Study:: 06/03/24 Coronary Calcium Scoring: High-resolution Computed Tomographic imaging of the chest was performed on [06/03/24 ], with particular attention paid to the coronary arteries. Images from the examination were analyzed for the presence and extent of coronary artery calcification , using coronary calcium quantification software. The patient tolerated the procedure well and there were no complications. The results of the coronary calcification analysis are provided below. Findings Coronary Artery Left Main (LM): 0 Left Anterior Descending (LAD): 0 Left Circumflex (LCX): 0 Right Coronary Artery (RCA): 0 Total Agatston Score: 0 Percentile Rankin Calcium Scoring Interpretation: Different methods to categorize the overall amount of coronary plaque. Overall amount CAC SIS Visual of coronary plaque P1 Mild -100 <2 1-2 vessels with mild amount of plaque P2 Moderate 101-300 3-4 1-2 vessels with moderate amount, 3 vessels with mild amount of plaque P3 Severe 301-999 5-7 3 vessels with moderate amount, 1 vessel with severe amount of plaque P4 Extensive >1000 >8 2-3 vessels with severe amount of plaque Conclusion: No atherosclerotic plaquing noted
== END | disposition home or self-care (01) ==
LOC: CT 13:30
PROVIDERS: PCP Internal Medicine; Referring Provider Internal Medicine; Visit Provider Internal Medicine
DX: R73.09 Other abnormal glucose (principal)
CPT/HCPCS: 75571; 76380

== ENCOUNTER → 2024-07-13 | Outpatient (CLI) | payer MEDICARE, OTHER, SELFPAY ==
--- NOTE | 2024-07-13 09:38 | ECHOD_ITS ---
Reason For Study: Pericardial Effusion Procedure This was a 2D Doppler, Color Flow transthoracic echocardiogram. Myocardial strain analysis was performed in this exam to aid in the assessment of cardiac function. Exam performed in department. Left Ventricle Normal LV size. Left ventricular systolic function is normal. The left ventricular ejection fraction is 60 %. Stage 1 diastolic dysfunction. No regional wall motion abnormalities noted. Right Ventricle Normal right ventricle. Normal systolic function. Atria Normal left atrium. Normal right atrium. Mitral Valve Normal mitral valve. Tricuspid Valve Normal tricuspid valve. Mild tricuspid valve insufficiency. Pulmonary artery systolic pressure is 20 mmHg. Aortic Valve Trisinus/trileaflet aortic valve. Mild (1+) aortic valve insufficiency. Pulmonic Valve Normal pulmonic valve. Great Vessels Normal aortic root. The pulmonary artery is normal size. Inferior vena cava collapse with respiration. Pericardium/Pleural No pericardial effusion. MMode/2D Measurements & Calculations LVIDd: 4.5 cm IVSd: 0.99 cm asc Aorta Diam: 3.2 cm LVIDs: 3.3 cm LVPWd: 0.98 cm RVDd: 3.7 cm FS: 27.6 % LAV(MOD-bp): 33.4 ml LVAd ap4: 27.9 cm2 LVAd ap2: 25.2 cm2 LAV(MOD-bp) Indexed: 19.2 ml/m2 LVLd ap4: 7.5 cm LVLd ap2: 6.7 cm LAV(MOD-sp2): 39.3 ml EDV(MOD-sp4): 85.4 ml EDV(MOD-sp2): 80.7 ml LAV(MOD-sp4): 26.2 ml EDV(sp4-el): 88.0 ml EDV(sp2-el): 80.3 ml LVAs ap4: 15.8 cm2 LVAs ap2: 15.3 cm2 LVLs ap4: 6.5 cm LVLs ap2: 6.1 cm ESV(MOD-sp4): 33.0 ml ESV(MOD-sp2): 32.4 ml ESV(sp4-el): 32.5 ml ESV(sp2-el): 32.8 ml EF(MOD-sp4): 61.4 % EF(MOD-sp2): 59.9 % EF(sp4-el): 63.1 % SV(MOD-sp4): 52.4 ml SV(MOD-sp2): 48.4 ml SV(sp4-el): 55.5 ml SI(MOD-sp4): 30.1 ml/m2 SI(MOD-sp2): 27.8 ml/m2 LA A4 area: 12.9 cm2 LA dimension(2D): 3.5 cm RA A4 area: 12.5 cm2 TAPSE: 2.2 cm Time Measurements MV dec time: 0.33 sec Doppler Measurements & Calculations MV E max ruddy: 52.1 cm/sec Lat Peak E' Ruddy: 8.5 cm/sec Med Peak E' Ruddy: 7.0 cm/sec MV A max ruddy: 68.7 cm/sec E/E' lat: 6.2 E/E' med: 7.4 MV E/A: 0.76 Ao V2 max: 115.9 cm/sec AI max ruddy: 353.7 cm/sec MV dec slope: 158.4 cm/sec2 Ao max P.4 mmHg AI max P.0 mmHg Ao V2 mean: 84.3 cm/sec Ao mean P.2 mmHg AI dec slope: 181.5 cm/sec2 Ao V2 VTI: 31.5 cm AI P1/2t: 570.7 msec AV (velocity ratio): 0.83 LV V1 max: 105.6 cm/sec PA V2 max: 56.9 cm/sec TR max ruddy: 217.5 cm/sec LV V1 max P.5 mmHg TR max P.9 mmHg LV V1 mean P.7 mmHg LV V1 mean: 78.4 cm/sec LV V1 VTI: 26.0 cm ECHO/Echo Complete Interpretation Summary Normal LV size. Left ventricular systolic function is normal. The left ventricular ejection fraction is 60 %. Stage 1 diastolic dysfunction. No pericardial effusion. The global longitudinal strain is normal. The global longitudinal strain = -17 % (normal). Ordering Physician: Corin Spencer Referring Physician: Corin Spencer Performed By: Mary Chaney, CONSTANCE, RVT
== END | disposition home or self-care (01) ==
LOC: CVS 09:38
PROVIDERS: PCP Internal Medicine; Referring Provider Internal Medicine; Visit Provider Internal Medicine
DX: I31.39 Other pericardial effusion (noninflammatory) (principal)
CPT/HCPCS: 93306

== ENCOUNTER → 2024-10-21 | Outpatient (CLI) | payer MEDICARE, OTHER, SELFPAY ==
--- NOTE | 2024-10-21 08:15 | RAD_ITS ---
EXAM: AIR CONTRAST BARIUM ENEMA CLINICAL HISTORY: FAILED COLONOSCOPY. REDUNDANT COLON. COMPARISON: NO RELEVANT PRIOR. TECHNIQUE: RETROGRADE FILLING OF THE ENTIRE COLON WAS PERFORMED WITH HIGH DENSITY BARIUM AND AIR. ROUTINE SPOT FILMS AND OVERHEAD RADIOGRAPHS WERE OBTAINED DURING THE PROCEDURE. FINDINGS: Haustral markings appear normal. Diffuse tiny opacities adherent to the colon mucosa. No large ulcerations are identified. No intraluminal filling defects suspicious for polyps. A few diverticuli are scattered throughout the colon. No constricting or obstructing lesions are noted. No extrinsic defects. No other significant findings. RAD/Barium Enema w/Air Contrast IMPRESSION: 1. Suspect fine adherent fecal debris on the colon mucosa. Can not exclude th e definitive diagnosis of small ulcerations. 2. [id number] colon redundancy. 3. Mild diverticulosis. Reading Location: [place] [id number]
== END | disposition home or self-care (01) ==
LOC: RAD 08:08
PROVIDERS: PCP Internal Medicine; Referring Provider Internal Medicine Gastroenterology; Visit Provider Internal Medicine Gastroenterology
DX: Q43.8 Other specified congenital malformations of intestine (principal)
CPT/HCPCS: 74280

== ENCOUNTER → 2025-01-06 | Outpatient (CLI) | payer MEDICARE, OTHER, SELFPAY ==
--- NOTE | 2025-01-06 14:45 | BI_ITS ---
EXAM: SCRN MAMM (CAD)W/SHIRA BILAT DATE: 01/06/2025 CLINICAL HISTORY: F, Age 69 y/o , BILATERAL SCREENING MAMMO Noncontributory. Bilateral breast implants. TECHNIQUE: SCRN MAMM (CAD)W/SHIRA BILAT COMPARISON: Prior exam(s) dated November 27, 2023.. FINDINGS: TISSUE DENSITY: The breasts are heterogeneously dense, which may obscure small masses. Bilateral Breast Mammographic Findings: No significant masses, calcifications or other abnormalities are identified. Stable appearance of the bilateral breast implants. No suspicious masses, areas of developing architectural distortion, or suspicious calcifications. There has been no significant interval change. BI/SCRN MAMM (CAD)W/SHIRA BILAT IMPRESSION: Stable examination OVERALL FINAL ASSESSMENT BI-RADS 2: BENIGN RECOMMEND ANNUAL MAMMOGRAPHIC SCREENING. RECOMMENDATION: Routine annual follow-up in 1 Year A letter with findings and recommendations will be mailed to the patient. Reading Location: [facility]
== END | disposition home or self-care (01) ==
LOC: OPBI 14:33
PROVIDERS: PCP Internal Medicine; Referring Provider Internal Medicine; Visit Provider Internal Medicine
DX: Z12.31 Encounter for screening mammogram for malignant neoplasm of breast (principal)
CPT/HCPCS: 77063; 77067

== ENCOUNTER → 2025-03-07 | Outpatient (CLI) | payer MEDICARE, OTHER, SELFPAY ==
--- NOTE | 2025-03-07 15:12 | US_ITS ---
PROCEDURE: THYROID, 03/07/2025 REASON FOR EXAM: THYROID NODULE TECHNIQUE: Grayscale and color Doppler imaging of the thyroid was performed. COMPARISON: 12/23/2023 FINDINGS: Right lobe measures 4.4 x 1.9 x 1.4cm. Essentially homogeneous background echotexture. No abnormal vascularity. Nodules as below: *Midgland, 34 x 15 x 14 mm, solid, hypoechoic, punctate echogenic foci, TI-RADS 5. Previously 30 x 14 x 14 mm. Left lobe measures 3.2 x 1.1 x 0.8 cm. Essentially homogeneous background echotexture. No abnormal vascularity. No solid or mostly solid nodules are identified. Isthmus measures 1 mm in thickness. US/Thyroid IMPRESSION: 1. Assessment is TI-RADS 5. A 34 mm nodule on the RIGHT again meets criteria f or FNA which is recommended as per the below. 2. Otherwise essentially homogeneous gland with relative LEFT lobe atrophy note d. Management recommendations for TI-RADS 5 findings: FNA if = 1 cm; Follow if = 0 .5 cm annually until 5 years. Enlargment is defined as ?20% increase in at least two nodule dimensions, with a minimal increase of 2 mm or ?50% or greater increase in volume. Recommendations per ACR Thyroid Imaging, Reporting and Data System (TI-RADS): Tootie gregg Paper of the ACR TI-RADS Committee, 2017 ([email or web address]) Reading Location: [id number]
== END | disposition home or self-care (01) ==
LOC: US 15:07
PROVIDERS: PCP Internal Medicine; Referring Provider Internal Medicine; Visit Provider Internal Medicine
DX: E04.1 Nontoxic single thyroid nodule (principal)
CPT/HCPCS: 76536

== ENCOUNTER → 2025-06-02 | Outpatient (CLI) | payer MEDICARE, OTHER, SELFPAY ==
[2025-06-02 13:03] LABS: Mucous, Urine 0 SEEN /hpf (<or=2+); Red Blood Cells-Urine 0 SEEN /hpf (0-5); Squamous Epithelial Cells - UA 0 SEEN /hpf (5-10)
[2025-06-02 13:28] LABS: Hematocrit 40.2 % (37-47); Hemoglobin 12.7 g/dL (12.0-15.0); Immature Granulocytes Count 0.010 X10^3/uL (0.0-0.0); Mean Corp Hgb Conc 31.6 g/dL (32-36); Mean Corpuscular Volume 96.4 fL (81-99); Mean Platelet Vol. 10.5 fl (6.2-12.0); NRBC Flagged by Analyzer 0 % (0-5); Platelet Count 200 K/mm3 (150-450); RBC Distribution Width CV 13.4 % (11.6-14.6); RBC Distribution Width SD 47.8 fl (35.1-43.9); Red Blood Count 4.17 M/mm3 (4.2-5.4); White Blood Count 5.0 K/mm3 (4.4-11.0)
[2025-06-02 13:30] LABS: Color, Urine Straw (Yellow); Glucose, Dipstick Normal (Normal); Ketone-Dipstick Negative (Negative); Leukocyte Esterase-Dipstick Negative /ul (Negative); Nitrite-Dipstick Negative (Negative); Occult Blood-Urine 10 /ul (Negative); Protein-Dipstick 15 mg/dl (Negative); Specific Gravity, Urine 1.010 (1.002-1.030); Urine Bilirubin Dipstick Negative (Negative)
[2025-06-02 13:47] LABS: AST(SGOT) 31 U/L (<=31); Alanine Aminotransfer ALT/SGPT 44 U/L (<=34); Albumin, Serum 4.7 g/dL (3.4-4.8); Alkaline Phosphatase 73 U/L (35-104); Anion Gap 10 (5-15); BUN 28 mg/dL (4-19); BUN/Creat Ratio 26.4 RATIO (10-20); Calcium,Total 9.1 mg/dL (7.6-11.0); Carbon Dioxide 26.5 mmol/L (21.0-32.0); Chloride 98 mmol/L (98-108); Globulin 2.2 g/dL (2.2-4.2); Glucose 78 mg/dL (70-99); Potassium 4.5 mmol/L (3.3-5.1)
[2025-06-02 14:08] LABS: Follicle Stimulating Hormone 98.3 mIU/mL
[2025-06-09 13:08] LABS: Testosterone, % Free 1.76 % (0.50-2.80); Testosterone, Free 1.21 ng/dL (0.10-0.85)
== END | disposition home or self-care (01) ==
LOC: LABSPEC 12:54
PROVIDERS: PCP Internal Medicine; Referring Provider Internal Medicine; Visit Provider Internal Medicine
DX: R73.09 Other abnormal glucose (principal); N95.1 Menopausal and female climacteric states
CPT/HCPCS: 80053; 81001; 82670; 83001; 83002; 84270; 84402; 84403; 85025

== ENCOUNTER → 2025-06-13 | Outpatient (CLI) | payer MEDICARE, OTHER, SELFPAY | END | disposition home or self-care (01) | LOC: LABSPEC 14:53 | PROVIDERS: PCP Internal Medicine; Referring Provider Internal Medicine; Visit Provider Internal Medicine | DX: R80.9 Proteinuria, unspecified (principal) | CPT/HCPCS: 87086; 87088 ==